=== PATIENT | female | born 1990 | race Caucasian/White ===

== ENCOUNTER 2018-10-04 09:46 | Emergency (ER) | payer OTHER ==
[~2018-10-04] VITALS: Ht 162.6 cm; Wt 59.0 kg
[~2018-10-04 09:46] MED LIST: NITR100C62 PO; ONDA4TAB10 PO
[2018-10-04 10:19] LABS: BILIRUBIN,URINE NEGATIVE (NEG); CLARITY,URINE CLEAR; COLOR,URINE YELLOW; NITRITE,URINE POSITIVE (NEG); PROTEIN,URINE NEGATIVE (NEG-TRACE); UROBILINOGEN,URINE 0.2 mg/dL (0.2 mg/dL)
--- NOTE | 2018-10-04 10:22 | PHYS DOC ---
Past Medical History Past Medical History: No Pertinent History Past Surgical History: Appendectomy, , Tubal ligation Additional Past Surgical Histo: SINUS SX Additional Information: 1/2 PACK DAY Alcohol Use: None Drug Use: Marijuana Adult General Chief Complaint Chief Complaint: ABDOMINAL PAIN HPI HPI 28 yo F with epigastric abd pain. sharp shooting nonradiating pain. no vomiting. no fevers. Hx of appendectomy and tubal ligation. ROS neg for f/c/v. All other review of systems is negative unless otherwise noted in history of present illness. ED course: 28 yo F presenting to the ED with epigastric abdominal pain. On arrival she is afebrile with normal heart rate. She is well-appearing on examination was soft and nontender abdomen. Negative McBurney's point. Negative Delaney sign. No rebound tenderness or guarding. Nondistended. She has not had any vomiting. Blood work obtained. IV fluids given along with nausea and right upper quadrant. Ultrasound of the gallbladder shows thickened appearance. Cannot exclude cholecystitis. Patient did eat prior to gallbladder ultrasound. Otherwise white blood count is within normal limits. Hemoglobin within normal limits. The patient does have a urinary tract infection. I had a long conversation with the patient about the ultrasound results and options. The patient on repeat examination has mild tenderness in the right upper quadrant. She does not have a fever and her vital signs are within normal limits. Blood pressure 120 systolic. Heart rate normal. Even the results of the ultrasound, I recommended admission for observation with possibly repeating the ultrasound at a later time or surgical consultation. The patient does not want to be admitted the hospital and would like to sign out AMA. I informed the patient of their right to a medical screening exam and any treatment and/or stabilization that may be necessary regardless of their ability to pay. The patient appears to have intact insight, judgment, and reason. In my opinion, this patient has the capacity to make decisions. The patient presented with abdominal pain and I am concerned that this could be cholelithiasis, cholecystitis. My initial plan prior to the pt expressing the desire to leave was admission for monitoring. I explained the risk of and disability to the patient in plain language which they were able to demonstrate in their own words verbal understanding. I discussed the limitations of the workup thus far included but were not limited to specialist consultation and repeat diagnostic imaging with medical monitoring. The pt has verbalized understanding of my concerns. I offered alternatives to the therapy including returning for worsening symptoms. I recommended the pt follow up with pcp tomorrow. I explained that at any time if the patient changed their mind, we are always open and would be happy to have them back. The patient refused further care and then left against medical advice. Review of Systems Review of Systems SEE ABOVE. Allergies Allergies Allergies Coded Allergies Type Severity Reaction Last Updated Verified No Known Drug Allergies 06/25/13 No Physical Exam Physical Exam SEE ABOVE Constitutional: Well developed, well nourished, no acute distress, non-toxic appearance. [] HENT: Normocephalic, atraumatic, bilateral external ears normal, oropharynx moist, no oral exudates, nose normal. [] Eyes: PERRLA, EOMI, conjunctiva normal, no discharge. [] Neck: Normal range of motion, no tenderness, supple, no stridor. [] Cardiovascular:Heart rate regular rhythm, no murmur [] Lungs & Thorax: Bilateral breath sounds clear to auscultation [] Abdomen: Bowel sounds normal, soft, no tenderness, no masses, no pulsatile masses. [] Skin: Warm, dry, no erythema, no rash. [] Back: No tenderness, no CVA tenderness. [] Extremities: No tenderness, no cyanosis, no clubbing, ROM intact, no edema. [] Neurologic: Alert and oriented X 3, normal motor function, normal sensory function, no focal deficits noted. [] Psychologic: Affect normal, judgement normal, mood normal. [] Current Patient Data Vital Signs Vital Signs Date Time Temp Pulse Resp B/P (MAP) Pulse Ox O2 Delivery O2 Flow Rate FiO2 10/04/18 10:11 98.0 91 18 124/67 (86) 100 Room Air 98.0 Lab Values Laboratory Tests Test 10/04/18 09:55 10/04/18 10:08 10/04/18 10:20 Urine Collection Type Unknown Urine Color Yellow Urine Clarity Clear Urine pH 6.0 Urine Specific [place] 1.010 Urine Protein Negative mg/dL (NEG-TRACE) Urine Glucose (UA) Negative mg/dL (NEG) Urine Ketones (Stick) Negative mg/dL (NEG) Urine Blood Small (NEG) Urine Nitrite Positive (NEG) Urine Bilirubin Negative (NEG) Urine Urobilinogen Dipstick 0.2 mg/dL (0.2 mg/dL) Urine Leukocyte Esterase Small (NEG) Urine RBC 1-2 /HPF (0-2) Urine WBC 20-40 /HPF (0-4) Urine Squamous Epithelial Cells Few /LPF Urine Bacteria Moderate /HPF (0-FEW) Urine Mucus Marked /LPF POC Urine HCG, Qualitative Hcg negative (Negative) White Blood Count 8.4 x10^3/uL (4.0-11.0) Red Blood Count 4.12 x10^6/uL (3.50-5.40) Hemoglobin 12.3 g/dL (12.0-15.5) Hematocrit 36.2 % (36.0-47.0) Mean Corpuscular Volume 88 fL (79-100) Mean Corpuscular Hemoglobin 30 pg (25-35) Mean Corpuscular Hemoglobin Concent 34 g/dL (31-37) Red Cell Distribution Width 13.3 % (11.5-14.5) Platelet Count 284 x10^3/uL (140-400) Neutrophils (%) (Auto) 60 % (31-73) Lymphocytes (%) (Auto) 28 % (24-48) Monocytes (%) (Auto) 7 % (0-9) Eosinophils (%) (Auto) 5 % (0-3) H Basophils (%) (Auto) 1 % (0-3) Neutrophils # (Auto) 5.1 x10^3uL (1.8-7.7) Lymphocytes # (Auto) 2.3 x10^3/uL (1.0-4.8) Monocytes # (Auto) 0.5 x10^3/uL (0.0-1.1) Eosinophils # (Auto) 0.4 x10^3/uL (0.0-0.7) Basophils # (Auto) 0.1 x10^3/uL (0.0-0.2) Sodium Level 142 mmol/L (136-145) Potassium Level 3.7 mmol/L (3.5-5.1) Chloride Level 105 mmol/L (98-107) Carbon Dioxide Level 24 mmol/L (21-32) Anion Gap 13 (6-14) Blood Urea Nitrogen 8 mg/dL (7-20) Creatinine 0.8 mg/dL (0.6-1.0) Estimated GFR (Cockcroft-Gault) 84.8 BUN/Creatinine Ratio 10 (6-20) Glucose Level 121 mg/dL (70-99) H Calcium Level 8.8 mg/dL (8.5-10.1) Total Bilirubin 0.6 mg/dL (0.2-1.0) Aspartate Amino Transferase (AST) 13 U/L (15-37) L Alanine Aminotransferase (ALT) 14 U/L (14-59) Alkaline Phosphatase 59 U/L (46-116) Total Protein 6.8 g/dL (6.4-8.2) Albumin 3.5 g/dL (3.4-5.0) Albumin/Globulin Ratio 1.1 (1.0-1.7) Lipase 92 U/L (73-393) Laboratory Tests 10/04/18 10:20 Laboratory Tests 10/04/18 10:20 EKG EKG [] Radiology/Procedures Radiology/Procedures [] Course & Med Decision Making Course & Med Decision Making Pertinent Labs and Imaging studies reviewed. (See chart for details) [] Dragon Disclaimer Dragon Disclaimer This electronic medical record was generated, in whole or in part, using a voice recognition dictation system. Departure Departure Impression: Primary Impression: Epigastric abdominal pain Disposition: AGAINST MEDICAL ADVICE Condition: GUARDED Referrals: KIESHA DE LEON MD (PCP) TERRA ALBARADO MD Oct 04, 2018 10:22
[2018-10-04 10:30] LABS: BASO # 0.1 x10^3/uL (0.0-0.2); BASO % 1 % (0-3); EOS # 0.4 x10^3/uL (0.0-0.7); EOS % 5 % (0-3); HEMATOCRIT 36.2 % (36.0-47.0); HEMOGLOBIN 12.3 g/dL (12.0-15.5); LYMPH # 2.3 x10^3/uL (1.0-4.8); LYMPH % 28 % (24-48); MEAN CORPUSCULAR HEMOGLOBIN 30 pg (25-35); MEAN CORPUSCULAR HGB CONC 34 g/dL (31-37); MEAN CORPUSCULAR VOLUME 88 fL (79-100); MONO # 0.5 x10^3/uL (0.0-1.1); MONO % 7 % (0-9); NEUT # 5.1 x10^3uL (1.8-7.7); NEUT % 60 % (31-73); PLATELET COUNT 284 x10^3/uL (140-400); RED BLOOD COUNT 4.12 x10^6/uL (3.50-5.40); RED CELL DISTRIBUTION WIDTH 13.3 % (11.5-14.5); WHITE BLOOD COUNT 8.4 x10^3/uL (4.0-11.0)
[2018-10-04 10:48] LABS: BACTERIA,URINE MODERATE /HPF (0-FEW); SQUAMOUS EPITHELIAL CELL,UR FEW /LPF; WBC,URINE 20-40 /HPF (0-4)
[2018-10-04 10:51] LABS: CALCIUM 8.8 mg/dL (8.5-10.1); CREATININE 0.8 mg/dL (0.6-1.0); GFR 84.8; POTASSIUM 3.7 mmol/L (3.5-5.1)
[2018-10-04 10:55] LABS: ALBUMIN 3.5 g/dL (3.4-5.0); ALBUMIN/GLOBULIN RATIO 1.1 (1.0-1.7); TOTAL BILIRUBIN 0.6 mg/dL (0.2-1.0); TOTAL PROTEIN 6.8 g/dL (6.4-8.2)
--- NOTE | 2018-10-04 11:04 | RAD ---
Examination: Ultrasound abdomen limited History: History of epigastric abdominal pain COMPARISON: None available. FINDINGS: The pancreas is not well-visualized due to bowel gas. The gallbladder wall thickness measures 3.5 mm. No ultrasonographic evidence of Delaney's sign. No evidence of gallstones. The right with the liver measures 15.5 cm. The right kidney measures 10.6 cm in length Visualized IVC, aorta is within normal limits of dimension IMPRESSION: 1. Thickened appearance of the gallbladder wall. Please note that the patient ate one and half hour back so thickness of the gallbladder could be due to contracted status of the gallbladder. However other possibility like cholecystitis is not completely excluded but no evidence of pericholecystic fluid or ultrasonographic evidence of Delaney's sign is identified. Correlate clinically. Electronically signed by: Sebastien Vivas MD (10/04/2018 11:01 AM) [id number]
[2018-10-04 11:48] VITALS: BP 127/69
== END 2018-10-04 11:50 | disposition left against medical advice (07) ==
LOC: ER 09:46
DX: R10.13 Epigastric pain (principal); R10.11 Right upper quadrant pain; F17.200 Nicotine dependence, unspecified, uncomplicated; Z90.89 Acquired absence of other organs; Z98.51 Tubal ligation status
CPT/HCPCS: 36415; 76705; 80053; 81001; 81025; 83690; 85025; 87086; 87186; 99284-25

== ENCOUNTER 2018-10-04 14:43 | Inpatient (IN) | payer OTHER ==
[~2018-10-04] VITALS: Ht 162.6 cm; Wt 62.9 kg
[2018-10-04] MEDS ORDERED: cefTRIAXone IV Push 1 GM VIAL. IVP ONE (16:00)
--- NOTE | 2018-10-04 16:31 | PDOC1 ---
History and Physical Date of Admission Date of Admission DATE: 10/04/18 TIME: 16:29 Identification/Chief Complaint Chief Complaint SEEN IN ER presented today to the ED to be admitted for possible cholecystitis and UTI, she was seen earlier today was supposed to be admitted so she signed out AMA because she had to take care of her children. Patient states she's had epigastric abdominal pain rated at 8 out of 10 described as sharp and constant since this morning. Also complaining of nausea. Denies pain radiating to her back. UTI SUSPECTED IN ER Past Medical History Past Medical History Past Medical History Past Medical History: No Pertinent History Past Surgical History: Appendectomy, , Tubal ligation Additional Past Surgical Histo: SINUS SX Alcohol Use: None Drug Use: Marijuana FAMILY HX HTN Cardiovascular: No pertinent hx Pulmonary: No pertinent hx Psych: No pertinent hx ENT: No pertinent hx Renal/: No pertinent hx Family History Family History: Hypertension Social History Smoke: <1 pack per day ALCOHOL: occassional Drugs: Marijuana Current Medications Current Medications Current Medications Ceftriaxone Sodium (Rocephin) 1 gm 1X ONCE IVP Last administered on 10/04/18at 16:18; Start 10/04/18 at 16:00; Stop 10/04/18 at 16:01; Status DC Active Scripts Active Zofran Odt (Ondansetron) 4 Mg Tab.rapdis 4 Mg PO Q8HRS PRN Macrobid 100 Mg Capsule (Nitrofurantoin Monohyd/M-Cryst) 100 Mg Capsule 100 Mg PO Q12HR Allergies Allergies: Coded Allergies: No Known Drug Allergies (Unverified , 06/25/13) ROS Review of System Review of Systems Review of Systems Constitutional: Denies fever or chills [] Eyes: Denies change in visual acuity, redness, or eye pain [] HENT: Denies nasal congestion or sore throat [] Respiratory: Denies cough or shortness of breath [] Cardiovascular: No additional information not addressed in HPI [] GI: Reports epigastric RUQ abdominal pain with nausea, denies vomiting, bloody stools or diarrhea [] : Denies dysuria or hematuria [] Musculoskeletal: SOME back pain or joint pain [] Integument: Denies rash or skin lesions [] Neurologic: Denies headache, focal weakness or sensory changes [] 14 PT systems were reviewed and found to be within normal limits, except as documented General: YES: Fatigue PSYCHOLOGICAL ROS: No: Anxiety, Behavioral Disorder, Concentration difficultie , Decreased libido, Depression, Disorientation, Hallucinations, Hostility, Irritablity, Memory difficulties, Mood Swings, Obsessive thoughts, Physical abuse, Sexual abuse, Sleep disturbances, Suicidal ideation, Other Eyes: No Blurry vision, No Decreased vision, No Double vision, No Dry eyes, No Excessive tearing, No Eye Pain, No Itchy Eyes, No Loss of vision, No Photophobia , No Scotomata, No Uses contacts, No Uses glasses, No Other Gastrointestinal: Yes Nausea, Yes Abdominal Pain Musculoskeletal: No Gait Disturbance, No Joint Pain, No Joint Stiffness, No Joint Swelling, No Muscle Pain, No Muscular Weakness, No Pain In:, No Swelling In:, No Other Skin: No Dry Skin, No Eczema, No Hair Changes, No Lumps, No Mole Changes, No Mottling, No Nail Changes, No Pruritus, No Rash, No Skin Lesion Changes, No Other, No Acne Physical Exam Physical Exam Physical Exam Physical Exam Constitutional: Well developed, well nourished, MOD acute distress, non-toxic appearance. [] HENT: Normocephalic, atraumatic, bilateral external ears normal, oropharynx moist, no oral exudates, nose normal. [] Eyes: PERRLA, EOMI, conjunctiva normal, no discharge. [] Neck: Normal range of motion, no tenderness, supple, no stridor. [] Cardiovascular:Heart rate regular rhythm, no murmur [] Lungs & Thorax: Bilateral breath sounds clear to auscultation [] Abdomen: Bowel sounds normal, soft, mild tenderness on palpation of the right upper quadrant, no right lower quadrant tenderness, negative Delaney sign, negative psoas sign, negative obturator sign, no masses, no pulsatile masses. [ ] Skin: Warm, dry, no erythema, no rash. [] Back: No tenderness, no CVA tenderness. [] Extremities: No tenderness, no cyanosis, no clubbing, ROM intact, no edema. [] Neurologic: Alert and oriented X 3, normal motor function, normal sensory function, no focal deficits noted. [] Psychologic: Affect normal, judgement normal, mood normal. [] General: Alert, Oriented X3, Cooperative, moderate distress HEENT: EOMI, Mucous membr. moist/pink Lungs: Clear to auscultation, Normal air movement Heart: S1S2, RRR Breasts: Not examined Abdomen: Soft PELVIC: Examination not indicated Extremities: No edema Neuro: Normal speech, Cranial nerves 3-12 NL Psych/Mental Status: Mental status NL, Mood NL Vitals Vitals Vital Signs Date Time Temp Pulse Resp B/P (MAP) Pulse Ox O2 Delivery O2 Flow Rate FiO2 10/04/18 15:23 97.6 80 18 112/55 (74) 100 Room Air 97.6 Images Images Examination: Ultrasound abdomen limited History: History of epigastric abdominal pain COMPARISON: None available. FINDINGS: The pancreas is not well-visualized due to bowel gas. The gallbladder wall thickness measures 3.5 mm. No ultrasonographic evidence of Delaney's sign. No evidence of gallstones. The right with the liver measures 15.5 cm. The right kidney measures 10.6 cm in length Visualized IVC, aorta is within normal limits of dimension IMPRESSION: 1. Thickened appearance of the gallbladder wall. Please note that the patient ate one and half hour back so thickness of the gallbladder could be due to contracted status of the gallbladder. However other possibility like cholecystitis is not completely excluded but no evidence of pericholecystic fluid or ultrasonographic evidence of Delaney's sign is identified. Correlate clinically. Electronically signed by: Sebastien Vivas MD (10/04/2018 11:01 AM) CRM VTE Prophylaxis Ordered VTE Prophylaxis Devices: Yes VTE Pharmacological Prophylaxi: Yes Assessment/Plan Assessment/Plan IMPRESSION 1. cholecystitis is not completely excluded no evidence of pericholecystic fluid or ultrasonographic evidence of Delaney's sign is identified. Correlate clinically. 2. UTI PLAN ADMIT IV ROCEPHIN GI CONSULT IV PROTONIX IV FLUID SUPPORT DVT PROPHYLAXIS AM CBC, COMP ALENA GARSIA MD Oct 04, 2018 16:31
--- NOTE | 2018-10-04 16:36 | PHYS DOC ---
Past Medical History Past Medical History: No Pertinent History Past Surgical History: Appendectomy, , Tubal ligation Additional Past Surgical Histo: SINUS SX Alcohol Use: None Drug Use: Marijuana Adult General Chief Complaint Chief Complaint: ABDOMINAL PAIN HPI HPI Patient is a 28 year old female with no significant medical history who presents today to the ED to be admitted for possible cholecystitis and UTI, she was seen earlier today was supposed to be admitted so she signed out AMA because she had to take care of her children. Patient states she's had epigastric abdominal pain rated at 8 out of 10 described as sharp and constant since this morning. Also complaining of nausea. Denies pain radiating to her back. Denies anything specifically relieving or exacerbating the pain. Review of Systems Review of Systems Constitutional: Denies fever or chills [] Eyes: Denies change in visual acuity, redness, or eye pain [] HENT: Denies nasal congestion or sore throat [] Respiratory: Denies cough or shortness of breath [] Cardiovascular: No additional information not addressed in HPI [] GI: Reports epigastric abdominal pain with nausea, denies vomiting, bloody stools or diarrhea [] : Denies dysuria or hematuria [] Musculoskeletal: Denies back pain or joint pain [] Integument: Denies rash or skin lesions [] Neurologic: Denies headache, focal weakness or sensory changes [] All other systems were reviewed and found to be within normal limits, except as documented in this note. Current Medications Current Medications Current Medications Medications (Trade) Dose Ordered Sig/[facility] Start Time Stop Time Status Last Admin Dose Admin Ceftriaxone Sodium (Rocephin) 1 gm 1X ONCE 10/04/18 16:00 10/04/18 16:01 DC 10/04/18 16:18 1 GM Allergies Allergies Allergies Coded Allergies Type Severity Reaction Last Updated Verified No Known Drug Allergies 06/25/13 No Physical Exam Physical Exam Constitutional: Well developed, well nourished, no acute distress, non-toxic appearance. [] HENT: Normocephalic, atraumatic, bilateral external ears normal, oropharynx moist, no oral exudates, nose normal. [] Eyes: PERRLA, EOMI, conjunctiva normal, no discharge. [] Neck: Normal range of motion, no tenderness, supple, no stridor. [] Cardiovascular:Heart rate regular rhythm, no murmur [] Lungs & Thorax: Bilateral breath sounds clear to auscultation [] Abdomen: Bowel sounds normal, soft, mild tenderness on palpation of the right upper quadrant, no right lower quadrant tenderness, negative Delaney sign, negative psoas sign, negative obturator sign, no masses, no pulsatile masses. [ ] Skin: Warm, dry, no erythema, no rash. [] Back: No tenderness, no CVA tenderness. [] Extremities: No tenderness, no cyanosis, no clubbing, ROM intact, no edema. [] Neurologic: Alert and oriented X 3, normal motor function, normal sensory function, no focal deficits noted. [] Psychologic: Affect normal, judgement normal, mood normal. [] Current Patient Data Vital Signs Vital Signs Date Time Temp Pulse Resp B/P (MAP) Pulse Ox O2 Delivery O2 Flow Rate FiO2 10/04/18 15:23 97.6 80 18 112/55 (74) 100 Room Air 97.6 EKG EKG [] Radiology/Procedures Radiology/Procedures [] Course & Med Decision Making Course & Med Decision Making Pertinent Labs and Imaging studies reviewed. (See chart for details) This is a 28-year-old female patient presented to the ED today to be admitted for cholecystitis and UTI. She was seen earlier and left AMA. Spoke with Dr. Del Angel who accepted patient for admission. From labs done this morning patient's white count was normal, AST is 13, ALT 14, ALK 59. Patient is afebrile. Spoke with Dr. Mata regarding the ultrasound results and labs, he requested we discharge patient to home and she can follow-up with his clinic. Dr. Del Angel came and saw patient and stated he will still admit patient and consult GI. Giuliano Disclaimer Dragon Disclaimer This electronic medical record was generated, in whole or in part, using a voice recognition dictation system. Departure Departure Impression: Primary Impression: Urinary tract infection Additional Impression: Abdominal pain Disposition: ADMITTED INPATIENT Condition: STABLE Referrals: KIESHA DE LEON MD (PCP) Problem Qualifiers Primary Impression: Urinary tract infection Urinary tract infection type: site unspecified Hematuria presence: without hematuria Qualified Codes: N39.0 - Urinary tract infection, site not specified Additional Impression: Abdominal pain Abdominal location: epigastric Qualified Codes: R10.13 - Epigastric pain OLLIE MARIE DISTRIBUTION COORDINATOR Oct 04, 2018 16:36
[2018-10-04] MEDS ORDERED: ONDANSETRON PF 4 MG/2 ML VIAL. IV PRN (16:45)
[2018-10-04] MEDS ORDERED: IV NORMAL SALINE 1000ML BAG 1,000 ML IV ONE (16:45)
[2018-10-04 18:15] VITALS: BP 106/70
--- NOTE | 2018-10-04 18:30 | NUR ---
Pt admitted from ED. A&o X4, VSS, c/o pain 01/23. Completed admission assessment. Oriented to room and unit. Consults were called. Call light within reach. Will continue to monitor.
[2018-10-04] MEDS: fentaNYL PF VIAL 100 MCG/2 ML VIAL IV PRN ×3 (18:41→23:13)
[2018-10-04] MEDS ORDERED: ONDANSETRON ODT 4 MG TAB.RAPDIS. PO PRN (19:00)
[2018-10-04] MEDS ORDERED: ENOXAPARIN 40 MG/0.4 ML SYRINGE. SQ SCH (19:00)
--- NOTE | 2018-10-04 19:31 | NUR ---
Lovenox held for possible procedure.
[2018-10-04 23:23] VITALS: BP 100/44
[2018-10-05 03:38] VITALS: BP 95/48
[2018-10-05] MEDS: fentaNYL PF VIAL 100 MCG/2 ML VIAL IV PRN ×2 (04:23→08:04)
[2018-10-05 06:54] LABS: BASO # 0.1 x10^3/uL (0.0-0.2); BASO % 1 % (0-3); EOS # 0.4 x10^3/uL (0.0-0.7); EOS % 7 % (0-3); HEMATOCRIT 34.5 % (36.0-47.0); HEMOGLOBIN 11.7 g/dL (12.0-15.5); LYMPH # 2.5 x10^3/uL (1.0-4.8); LYMPH % 43 % (24-48); MEAN CORPUSCULAR HEMOGLOBIN 30 pg (25-35); MEAN CORPUSCULAR HGB CONC 34 g/dL (31-37); MEAN CORPUSCULAR VOLUME 88 fL (79-100); MONO # 0.5 x10^3/uL (0.0-1.1); MONO % 8 % (0-9); NEUT # 2.4 x10^3uL (1.8-7.7); NEUT % 41 % (31-73); PLATELET COUNT 258 x10^3/uL (140-400); RED BLOOD COUNT 3.91 x10^6/uL (3.50-5.40); RED CELL DISTRIBUTION WIDTH 13.6 % (11.5-14.5); WHITE BLOOD COUNT 5.8 x10^3/uL (4.0-11.0)
[2018-10-05 07:00] VITALS: BP 92/49
[2018-10-05 07:43] LABS: ALBUMIN/GLOBULIN RATIO 0.9 (1.0-1.7); CALCIUM 8.2 mg/dL (8.5-10.1); CREATININE 0.7 mg/dL (0.6-1.0); GFR 98.9; POTASSIUM 3.6 mmol/L (3.5-5.1); TOTAL BILIRUBIN 0.7 mg/dL (0.2-1.0); TOTAL PROTEIN 6.2 g/dL (6.4-8.2)
--- NOTE | 2018-10-05 08:43 | RAD ---
PQRS Compliance statement: One or more of the following individualized dose reduction techniques were utilized for this examination: 1. Automated exposure control. 2. Adjustment of the mA and/or kV according to patient size. 3. Use of iterative reconstruction technique. Indication:SEVERE ABD PAIN;HX POSSIBLE CHOLECYSTITIS TECHNIQUE: CT abdomen and pelvis without IV contrast with multiplanar reformats. COMPARISON: None FINDINGS: Limited evaluation of solid abdominal and pelvic organs due to lack of IV contrast. Heart is normal in size. No pericardial or pleural effusion. Clear lung bases. Noncontrast appearance of the liver, spleen, gallbladder, pancreas, adrenals and kidneys within normal limits. No nephrolithiasis. No free pelvic fluid or ascites. No bowel obstruction. Uterus is present. Urinary bladder is within normal limits. No pneumoperitoneum. Bilateral L5 pars defect. No suspicious bony lesion. IMPRESSION: Limited evaluation of solid abdominal and pelvic organs due to lack of IV contrast. 1. No radiopaque gallstones or imaging evidence of acute cholecystitis. 2. No nephrolithiasis or hydronephrosis. Electronically signed by: Sharad Tolentino DO (10/05/2018 8:41 AM) [facility]
--- NOTE | 2018-10-05 09:07 | PDOC2 ---
CONSULT Date of Consult Date of Consult DATE: 10/05/18 TIME: 09:04 Reason for Consult Reason for Consult: Abdominal pain Referring Physician Referring Physician: Fullbright Identification/Chief Complaint Chief Complaint Abdominal pain no appetite Source Source: Patient History of Present Illness Reason for Visit: 28-year-old female with three-day history of right sided epigastric abdominal pain with some nausea no vomiting she states she has no appetite and has not eaten much in the last 3 days. She denies fevers chills. States the pain is fairly constant burning type pain in the upper abdomen Past Medical History Cardiovascular: No pertinent hx Pulmonary: No pertinent hx Psych: No pertinent hx ENT: No pertinent hx Renal/: No pertinent hx Past Surgical History Past Surgical History: No pertinent history Family History Family History: Hypertension Social History <1 pack per day ALCOHOL: occassional Drugs: Marijuana Current Problem List Problem List Problems Medical Problems: (1) Abdominal pain Status: Acute (2) Urinary tract infection Status: Acute Current Medications Current Medications Current Medications Ceftriaxone Sodium (Rocephin) 1 gm 1X ONCE IVP Last administered on 10/04/18at 16:18; Start 10/04/18 at 16:00; Stop 10/04/18 at 16:01; Status DC Ondansetron HCl (Zofran) 4 mg PRN Q8HRS PRN IV NAUSEA/VOMITING; Start 10/04/18 at 16:45; Stop 10/05/18 at 16:44 Fentanyl Citrate (Fentanyl 2ml Vial) 50 mcg PRN Q1HR PRN IV PAIN Last administered on 10/05/18at 08:04; Start 10/04/18 at 16:45; Stop 10/05/18 at 16:44 Sodium Chloride 1,000 ml @ 100 mls/hr 1X ONCE IV Last administered on at 18:43; Start 10/04/18 at 16:45; Stop 10/05/18 at 02:44; Status DC Ceftriaxone Sodium (Rocephin) 1 gm Q24H IVP ; Start 10/05/18 at 18:45 Ondansetron HCl (Zofran Odt) 4 mg PRN Q8HRS PRN PO NAUSEA/VOMITING; Start 10/04 at 19:00 Enoxaparin Sodium (Lovenox 40mg Syringe) 40 mg Q24H SQ ; Start 10/04/18 at 19:00 Active Scripts Active Zofran Odt (Ondansetron) 4 Mg Tab.rapdis 4 Mg PO Q8HRS PRN Macrobid 100 Mg Capsule (Nitrofurantoin Monohyd/M-Cryst) 100 Mg Capsule 100 Mg PO Q12HR Allergies Allergies: Uncoded Allergies: contrast (Adverse Reaction, Mild, Hives, 10/04/18) ROS Gastrointestinal: Yes Nausea, Yes Abdominal Pain Physical Exam General: Alert, Oriented X3, Cooperative, mild distress HEENT: Atraumatic, PERRLA, EOMI Lungs: Clear to auscultation, Normal air movement Heart: Regular rate, No murmurs Abdomen: Normal bowel sounds, Soft, Other (tender to palpation in epigastrium to right upper quadrant) Extremities: No edema Skin: No significant lesion Neuro: Normal speech Psych/Mental Status: Mental status NL Vitals VITALS Vital Signs Date Time Temp Pulse Resp B/P (MAP) Pulse Ox O2 Delivery O2 Flow Rate FiO2 10/05/18 08:04 Room Air 10/05/18 07:00 98.1 59 17 92/49 (63) 96 98.1 Labs Labs Laboratory Tests Test 10/05/18 06:09 White Blood Count 5.8 x10^3/uL (4.0-11.0) Red Blood Count 3.91 x10^6/uL (3.50-5.40) Hemoglobin 11.7 g/dL (12.0-15.5) Hematocrit 34.5 % (36.0-47.0) Mean Corpuscular Volume 88 fL (79-100) Mean Corpuscular Hemoglobin 30 pg (25-35) Mean Corpuscular Hemoglobin Concent 34 g/dL (31-37) Red Cell Distribution Width 13.6 % (11.5-14.5) Platelet Count 258 x10^3/uL (140-400) Neutrophils (%) (Auto) 41 % (31-73) Lymphocytes (%) (Auto) 43 % (24-48) Monocytes (%) (Auto) 8 % (0-9) Eosinophils (%) (Auto) 7 % (0-3) Basophils (%) (Auto) 1 % (0-3) Neutrophils # (Auto) 2.4 x10^3uL (1.8-7.7) Lymphocytes # (Auto) 2.5 x10^3/uL (1.0-4.8) Monocytes # (Auto) 0.5 x10^3/uL (0.0-1.1) Eosinophils # (Auto) 0.4 x10^3/uL (0.0-0.7) Basophils # (Auto) 0.1 x10^3/uL (0.0-0.2) Sodium Level 142 mmol/L (136-145) Potassium Level 3.6 mmol/L (3.5-5.1) Chloride Level 107 mmol/L (98-107) Carbon Dioxide Level 25 mmol/L (21-32) Anion Gap 10 (6-14) Blood Urea Nitrogen 3 mg/dL (7-20) Creatinine 0.7 mg/dL (0.6-1.0) Estimated GFR (Cockcroft-Gault) 98.9 BUN/Creatinine Ratio 4 (6-20) Glucose Level 82 mg/dL (70-99) Calcium Level 8.2 mg/dL (8.5-10.1) Total Bilirubin 0.7 mg/dL (0.2-1.0) Aspartate Amino Transf (AST/SGOT) 15 U/L (15-37) Alanine Aminotransferase (ALT/SGPT) 10 U/L (14-59) Alkaline Phosphatase 54 U/L (46-116) Total Protein 6.2 g/dL (6.4-8.2) Albumin 3.0 g/dL (3.4-5.0) Albumin/Globulin Ratio 0.9 (1.0-1.7) Laboratory Tests Test 10/05/18 06:09 White Blood Count 5.8 x10^3/uL (4.0-11.0) Red Blood Count 3.91 x10^6/uL (3.50-5.40) Hemoglobin 11.7 g/dL (12.0-15.5) Hematocrit 34.5 % (36.0-47.0) Mean Corpuscular Volume 88 fL (79-100) Mean Corpuscular Hemoglobin 30 pg (25-35) Mean Corpuscular Hemoglobin Concent 34 g/dL (31-37) Red Cell Distribution Width 13.6 % (11.5-14.5) Platelet Count 258 x10^3/uL (140-400) Neutrophils (%) (Auto) 41 % (31-73) Lymphocytes (%) (Auto) 43 % (24-48) Monocytes (%) (Auto) 8 % (0-9) Eosinophils (%) (Auto) 7 % (0-3) Basophils (%) (Auto) 1 % (0-3) Neutrophils # (Auto) 2.4 x10^3uL (1.8-7.7) Lymphocytes # (Auto) 2.5 x10^3/uL (1.0-4.8) Monocytes # (Auto) 0.5 x10^3/uL (0.0-1.1) Eosinophils # (Auto) 0.4 x10^3/uL (0.0-0.7) Basophils # (Auto) 0.1 x10^3/uL (0.0-0.2) Sodium Level 142 mmol/L (136-145) Potassium Level 3.6 mmol/L (3.5-5.1) Chloride Level 107 mmol/L (98-107) Carbon Dioxide Level 25 mmol/L (21-32) Anion Gap 10 (6-14) Blood Urea Nitrogen 3 mg/dL (7-20) Creatinine 0.7 mg/dL (0.6-1.0) Estimated GFR (Cockcroft-Gault) 98.9 BUN/Creatinine Ratio 4 (6-20) Glucose Level 82 mg/dL (70-99) Calcium Level 8.2 mg/dL (8.5-10.1) Total Bilirubin 0.7 mg/dL (0.2-1.0) Aspartate Amino Transf (AST/SGOT) 15 U/L (15-37) Alanine Aminotransferase (ALT/SGPT) 10 U/L (14-59) Alkaline Phosphatase 54 U/L (46-116) Total Protein 6.2 g/dL (6.4-8.2) Albumin 3.0 g/dL (3.4-5.0) Albumin/Globulin Ratio 0.9 (1.0-1.7) Images Images Ultrasound shows contracted gallbladder no stones no evidence of pericholecystic fluid or inflammation CT scan of the abdomen shows no gallstones no thickened gallbladder wall no pericholecystic fluid no monie cholecystic inflammation Assessment/Plan Assessment/Plan Epigastric to right upper quadrant abdominal pain with loss of appetite possibly gastric ulcer disease recommend EGD ALENA BRADSHAW MD Oct 05, 2018 09:07
--- NOTE | 2018-10-05 09:45 | PDOC2 ---
GI CONSULT Reason For Consult: Abd pain HPI: HPI: 28 y/o female who was evaluated twice int he ER yesterday - first time left AMA to care for her children. She says she awoke yesterday morning feeling like she "ran a mile" with "stabbing" right-sided pain and some shortness of breath. Has had similar symptoms before but only after running. Associated w/ nausea but no vomiting. Does report some decreased appetite recently. Also, she started a new job and doesn't have a lunch break so she has been skipping lunch. She estimates a 15 pound weight loss in 3 weeks. No hematemesis, hematochezia, melena, diarrhea, or constipation. No heartburn/reflux or dysphagia. No previous EGD or colonoscopy. No GB, liver, or pancreas history. No regular NSAID use. She is tearful when I walked in and requests to try eating and go home to her 2 and 4 year old children. Currently, pain has resolved w/ pain medications. Thickened GB wall on US, CT unrevealing. UTI suspected per labs completed the first time she was in the ER. PMH: PMH: appendectomy, , tubal ligation FH: Family History: Cancer (grandfather - colon), Other (grandmother - Crohn's, mother - colitis) Social History: Smoke: <1 pack per day ALCOHOL: none Drugs: Marijuana ROS: GEN: Denies fevers, chills, sweats HEENT: Denies blurred vision, sore throat CV: Denies chest pain RESP: +SOA GI: Per HPI : Denies hematuria, dysuria ENDO: +weight loss NEURO: Denies confusion, dizziness MSK: Denies weakness, joint pain/swelling SKIN: Denies jaundice, pruritus Vitals: Vitals: Vital Signs Date Time Temp Pulse Resp B/P (MAP) Pulse Ox O2 Delivery O2 Flow Rate FiO2 10/05/18 08:34 Room Air 10/05/18 07:00 98.1 59 17 92/49 (63) 96 98.1 Labs: Labs: Laboratory Tests Test 10/05/18 06:09 White Blood Count 5.8 x10^3/uL (4.0-11.0) Red Blood Count 3.91 x10^6/uL (3.50-5.40) Hemoglobin 11.7 g/dL (12.0-15.5) Hematocrit 34.5 % (36.0-47.0) Mean Corpuscular Volume 88 fL (79-100) Mean Corpuscular Hemoglobin 30 pg (25-35) Mean Corpuscular Hemoglobin Concent 34 g/dL (31-37) Red Cell Distribution Width 13.6 % (11.5-14.5) Platelet Count 258 x10^3/uL (140-400) Neutrophils (%) (Auto) 41 % (31-73) Lymphocytes (%) (Auto) 43 % (24-48) Monocytes (%) (Auto) 8 % (0-9) Eosinophils (%) (Auto) 7 % (0-3) Basophils (%) (Auto) 1 % (0-3) Neutrophils # (Auto) 2.4 x10^3uL (1.8-7.7) Lymphocytes # (Auto) 2.5 x10^3/uL (1.0-4.8) Monocytes # (Auto) 0.5 x10^3/uL (0.0-1.1) Eosinophils # (Auto) 0.4 x10^3/uL (0.0-0.7) Basophils # (Auto) 0.1 x10^3/uL (0.0-0.2) Sodium Level 142 mmol/L (136-145) Potassium Level 3.6 mmol/L (3.5-5.1) Chloride Level 107 mmol/L (98-107) Carbon Dioxide Level 25 mmol/L (21-32) Anion Gap 10 (6-14) Blood Urea Nitrogen 3 mg/dL (7-20) Creatinine 0.7 mg/dL (0.6-1.0) Estimated GFR (Cockcroft-Gault) 98.9 BUN/Creatinine Ratio 4 (6-20) Glucose Level 82 mg/dL (70-99) Calcium Level 8.2 mg/dL (8.5-10.1) Total Bilirubin 0.7 mg/dL (0.2-1.0) Aspartate Amino Transf (AST/SGOT) 15 U/L (15-37) Alanine Aminotransferase (ALT/SGPT) 10 U/L (14-59) Alkaline Phosphatase 54 U/L (46-116) Total Protein 6.2 g/dL (6.4-8.2) Albumin 3.0 g/dL (3.4-5.0) Albumin/Globulin Ratio 0.9 (1.0-1.7) Allergies: Uncoded Allergies: contrast (Adverse Reaction, Mild, Hives, 10/04/18) Medications: Current Medications Medications (Trade) Dose Ordered Sig/Robbin Route PRN Reason Start Time Stop Time Status Last Admin Dose Admin Ceftriaxone Sodium (Rocephin) 1 gm 1X ONCE IVP 10/04/18 16:00 10/04/18 16:01 DC 10/04/18 16:18 Fentanyl Citrate (Fentanyl 2ml Vial) 50 mcg PRN Q1HR PRN IV PAIN 10/04/18 16:45 10/05/18 16:44 10/05/18 08:04 Sodium Chloride 1,000 ml @ 100 mls/hr 1X ONCE IV 10/04/18 16:45 10/05/18 02:44 DC 10/04/18 18:43 Imaging: Imaging: CT A/P 10/05/18 IMPRESSION: Limited evaluation of solid abdominal and pelvic organs due to lack of IV contrast. 1. No radiopaque gallstones or imaging evidence of acute cholecystitis. 2. No nephrolithiasis or hydronephrosis. 10/04/18 IMPRESSION: 1. Thickened appearance of the gallbladder wall. Please note that the patient ate one and half hour back so thickness of the gallbladder could be due to contracted status of the gallbladder. However other possibility like cholecystitis is not completely excluded but no evidence of pericholecystic fluid or ultrasonographic evidence of Delaney's sign is identified. Correlate clinically. PE: GEN: NAD HEENT: Atraumatic, PERRL LUNGS: CTAB HEART: RRR ABD: NABS, S/ND, mild epigastric and RUQ discomfort EXTREMITY: No edema SKIN: No rashes, no jaundice NEURO/PSYCH: A & O 3 A/P: A/P: Upper abd discomfort, nausea, decreased appetite, weight loss ?abnormal GB imaging FH CRC and IBD ?UTI Marijuana use -- Plans noted for EGD w/ Dr. Mata. Consider PPI. AMARJIT BRAUN Oct 05, 2018 09:45
[2018-10-05 11:00] VITALS: BP 107/60
--- NOTE | 2018-10-05 11:51 | NUR ---
SW following. Discussed with RN, RN advised no SW needs at this time. Possible procedure today. Pt could also possibly discharge home today with self care. SW will continue to follow.
--- NOTE | 2018-10-05 11:57 | PDOC ---
PROGRESS NOTES Chief Complaint Chief Complaint Abdominal Pain UTI ?Cholecystitis ?PUD Mild Anemia H/o appendectomy, tubal ligation FHx of HTN History of Present Illness History of Present Illness Ms Rice is a 28yo F who presents with abdominal pain, found to have a UTI and possible cholecystitis vs ulcer She was seen and examined this morning was at bedside She reports improving abdominal pain, described it as cramping and in epigastric and RUQ regions Denies further complaints Discussed with RN Vitals Vitals Vital Signs Date Time Temp Pulse Resp B/P (MAP) Pulse Ox O2 Delivery O2 Flow Rate FiO2 10/05/18 11:00 98.1 71 16 107/60 (76) 98 Room Air 98.1 Physical Exam General: Alert, Oriented X3, Cooperative, mild distress Heart: Regular rate, No murmurs Lungs: Clear Abdomen: Normal bowel sounds, Soft, Other (tender to palpation in epigastrium to right upper quadrant) Extremities: No edema Skin: No rashes, No significant lesion Labs LABS Laboratory Tests Test 10/05/18 06:09 White Blood Count 5.8 x10^3/uL (4.0-11.0) Red Blood Count 3.91 x10^6/uL (3.50-5.40) Hemoglobin 11.7 g/dL (12.0-15.5) Hematocrit 34.5 % (36.0-47.0) Mean Corpuscular Volume 88 fL (79-100) Mean Corpuscular Hemoglobin 30 pg (25-35) Mean Corpuscular Hemoglobin Concent 34 g/dL (31-37) Red Cell Distribution Width 13.6 % (11.5-14.5) Platelet Count 258 x10^3/uL (140-400) Neutrophils (%) (Auto) 41 % (31-73) Lymphocytes (%) (Auto) 43 % (24-48) Monocytes (%) (Auto) 8 % (0-9) Eosinophils (%) (Auto) 7 % (0-3) Basophils (%) (Auto) 1 % (0-3) Neutrophils # (Auto) 2.4 x10^3uL (1.8-7.7) Lymphocytes # (Auto) 2.5 x10^3/uL (1.0-4.8) Monocytes # (Auto) 0.5 x10^3/uL (0.0-1.1) Eosinophils # (Auto) 0.4 x10^3/uL (0.0-0.7) Basophils # (Auto) 0.1 x10^3/uL (0.0-0.2) Sodium Level 142 mmol/L (136-145) Potassium Level 3.6 mmol/L (3.5-5.1) Chloride Level 107 mmol/L (98-107) Carbon Dioxide Level 25 mmol/L (21-32) Anion Gap 10 (6-14) Blood Urea Nitrogen 3 mg/dL (7-20) Creatinine 0.7 mg/dL (0.6-1.0) Estimated GFR (Cockcroft-Gault) 98.9 BUN/Creatinine Ratio 4 (6-20) Glucose Level 82 mg/dL (70-99) Calcium Level 8.2 mg/dL (8.5-10.1) Total Bilirubin 0.7 mg/dL (0.2-1.0) Aspartate Amino Transf (AST/SGOT) 15 U/L (15-37) Alanine Aminotransferase (ALT/SGPT) 10 U/L (14-59) Alkaline Phosphatase 54 U/L (46-116) Total Protein 6.2 g/dL (6.4-8.2) Albumin 3.0 g/dL (3.4-5.0) Albumin/Globulin Ratio 0.9 (1.0-1.7) Review of Systems Review of Systems Pt reports mild upper abdominal pain Denies CP, SOB, FRANK, n/v Assessment and Plan Assessmemt and Plan Problems Medical Problems: (1) Abdominal pain Status: Acute (2) Urinary tract infection Status: Acute Assessment Abdominal Pain UTI ?Cholecystitis ?PUD Mild Anemia H/o appendectomy, tubal ligation FHx of CRC, IBD Plan EGD today w/ Dr. Mata- r/o ulcers IV rocephin for UTI IV protonix IVF DVT prophylaxis Follow labs Discharge dispo pending Appreciate further GI recs Comment Review of Relevant I have reviewed the following items tho (where applicable) has been applied. Labs Laboratory Tests Test 10/05/18 06:09 White Blood Count 5.8 x10^3/uL (4.0-11.0) Red Blood Count 3.91 x10^6/uL (3.50-5.40) Hemoglobin 11.7 g/dL (12.0-15.5) Hematocrit 34.5 % (36.0-47.0) Mean Corpuscular Volume 88 fL (79-100) Mean Corpuscular Hemoglobin 30 pg (25-35) Mean Corpuscular Hemoglobin Concent 34 g/dL (31-37) Red Cell Distribution Width 13.6 % (11.5-14.5) Platelet Count 258 x10^3/uL (140-400) Neutrophils (%) (Auto) 41 % (31-73) Lymphocytes (%) (Auto) 43 % (24-48) Monocytes (%) (Auto) 8 % (0-9) Eosinophils (%) (Auto) 7 % (0-3) Basophils (%) (Auto) 1 % (0-3) Neutrophils # (Auto) 2.4 x10^3uL (1.8-7.7) Lymphocytes # (Auto) 2.5 x10^3/uL (1.0-4.8) Monocytes # (Auto) 0.5 x10^3/uL (0.0-1.1) Eosinophils # (Auto) 0.4 x10^3/uL (0.0-0.7) Basophils # (Auto) 0.1 x10^3/uL (0.0-0.2) Sodium Level 142 mmol/L (136-145) Potassium Level 3.6 mmol/L (3.5-5.1) Chloride Level 107 mmol/L (98-107) Carbon Dioxide Level 25 mmol/L (21-32) Anion Gap 10 (6-14) Blood Urea Nitrogen 3 mg/dL (7-20) Creatinine 0.7 mg/dL (0.6-1.0) Estimated GFR (Cockcroft-Gault) 98.9 BUN/Creatinine Ratio 4 (6-20) Glucose Level 82 mg/dL (70-99) Calcium Level 8.2 mg/dL (8.5-10.1) Total Bilirubin 0.7 mg/dL (0.2-1.0) Aspartate Amino Transf (AST/SGOT) 15 U/L (15-37) Alanine Aminotransferase (ALT/SGPT) 10 U/L (14-59) Alkaline Phosphatase 54 U/L (46-116) Total Protein 6.2 g/dL (6.4-8.2) Albumin 3.0 g/dL (3.4-5.0) Albumin/Globulin Ratio 0.9 (1.0-1.7) Laboratory Tests Test 10/05/18 06:09 White Blood Count 5.8 x10^3/uL (4.0-11.0) Red Blood Count 3.91 x10^6/uL (3.50-5.40) Hemoglobin 11.7 g/dL (12.0-15.5) Hematocrit 34.5 % (36.0-47.0) Mean Corpuscular Volume 88 fL (79-100) Mean Corpuscular Hemoglobin 30 pg (25-35) Mean Corpuscular Hemoglobin Concent 34 g/dL (31-37) Red Cell Distribution Width 13.6 % (11.5-14.5) Platelet Count 258 x10^3/uL (140-400) Neutrophils (%) (Auto) 41 % (31-73) Lymphocytes (%) (Auto) 43 % (24-48) Monocytes (%) (Auto) 8 % (0-9) Eosinophils (%) (Auto) 7 % (0-3) Basophils (%) (Auto) 1 % (0-3) Neutrophils # (Auto) 2.4 x10^3uL (1.8-7.7) Lymphocytes # (Auto) 2.5 x10^3/uL (1.0-4.8) Monocytes # (Auto) 0.5 x10^3/uL (0.0-1.1) Eosinophils # (Auto) 0.4 x10^3/uL (0.0-0.7) Basophils # (Auto) 0.1 x10^3/uL (0.0-0.2) Sodium Level 142 mmol/L (136-145) Potassium Level 3.6 mmol/L (3.5-5.1) Chloride Level 107 mmol/L (98-107) Carbon Dioxide Level 25 mmol/L (21-32) Anion Gap 10 (6-14) Blood Urea Nitrogen 3 mg/dL (7-20) Creatinine 0.7 mg/dL (0.6-1.0) Estimated GFR (Cockcroft-Gault) 98.9 BUN/Creatinine Ratio 4 (6-20) Glucose Level 82 mg/dL (70-99) Calcium Level 8.2 mg/dL (8.5-10.1) Total Bilirubin 0.7 mg/dL (0.2-1.0) Aspartate Amino Transf (AST/SGOT) 15 U/L (15-37) Alanine Aminotransferase (ALT/SGPT) 10 U/L (14-59) Alkaline Phosphatase 54 U/L (46-116) Total Protein 6.2 g/dL (6.4-8.2) Albumin 3.0 g/dL (3.4-5.0) Albumin/Globulin Ratio 0.9 (1.0-1.7) Medications Current Medications Ceftriaxone Sodium (Rocephin) 1 gm 1X ONCE IVP Last administered on 10/04/18at 16:18; Start 10/04/18 at 16:00; Stop 10/04/18 at 16:01; Status DC Ondansetron HCl (Zofran) 4 mg PRN Q8HRS PRN IV NAUSEA/VOMITING; Start 10/04/18 at 16:45; Stop 10/05/18 at 16:44 Fentanyl Citrate (Fentanyl 2ml Vial) 50 mcg PRN Q1HR PRN IV PAIN Last administered on 10/05/18at 08:04; Start 10/04/18 at 16:45; Stop 10/05/18 at 16:44 Sodium Chloride 1,000 ml @ 100 mls/hr 1X ONCE IV Last administered on at 18:43; Start 10/04/18 at 16:45; Stop 10/05/18 at 02:44; Status DC Ceftriaxone Sodium (Rocephin) 1 gm Q24H IVP ; Start 10/05/18 at 18:45 Ondansetron HCl (Zofran Odt) 4 mg PRN Q8HRS PRN PO NAUSEA/VOMITING; Start 10/04 at 19:00 Enoxaparin Sodium (Lovenox 40mg Syringe) 40 mg Q24H SQ ; Start 10/04/18 at 19:00 Active Scripts Active Zofran Odt (Ondansetron) 4 Mg Tab.rapdis 4 Mg PO Q8HRS PRN Macrobid 100 Mg Capsule (Nitrofurantoin Monohyd/M-Cryst) 100 Mg Capsule 100 Mg PO Q12HR Vitals/I & O Vital Sign - Last 24 Hours 10/04/18 10/04/18 10/04/18 3/21/19 15:23 16:00 16:30 17:00 Temp 97.6 97.6 Pulse 80 84 84 84 Resp 18 B/P (MAP) 112/55 (74) 109/69 (82) 111/67 (82) 96/52 (67) Pulse Ox 100 97 97 100 O2 Delivery Room Air Room Air Room Air Room Air 10/04/18 10/04/18 10/04/18 10/04/18 18:15 18:32 18:41 19:15 Temp 98.1 98.1 Pulse 68 B/P (MAP) 106/70 (82) Pulse Ox 100 100 O2 Delivery Room Air Room Air 10/04/18 10/04/18 10/04/18 10/04/18 20:05 21:00 23:13 23:23 Temp 97.9 97.9 Pulse 88 Resp 18 B/P (MAP) 100/44 (62) Pulse Ox 100 100 98 O2 Delivery Room Air Room Air Room Air Room Air 10/05/18 10/05/18 10/05/18 10/05/18 03:38 04:23 07:00 08:00 Temp 98.3 98.1 98.3 98.1 Pulse 72 59 Resp 16 17 B/P (MAP) 95/48 (64) 92/49 (63) Pulse Ox 96 96 O2 Delivery Room Air Room Air Room Air Room Air 10/05/18 10/05/18 10/05/18 08:04 08:34 11:00 Temp 98.1 98.1 Pulse 71 Resp 16 B/P (MAP) 107/60 (76) Pulse Ox 98 O2 Delivery Room Air Room Air Room Air Intake and Output 10/04/18 10/04/18 10/05/18 14:59 22:59 06:59 Intake Total 480 ml Balance 480 ml LILO HSU III DO Oct 05, 2018 11:57
[2018-10-05 12:16] LABS: U PREG PATIENT NEGATIVE (NEG)
[2018-10-05] MEDS ORDERED: PROPOFOL 20 ML IV ONE (12:25)
[2018-10-05] MEDS ORDERED: LIDOCAINE 2% PF 5 ML VIAL. ONE (12:25)
--- NOTE | 2018-10-05 12:27 | DS ---
DATE OF DISCHARGE: 10/05/2018 ADMISSION DIAGNOSES: Urinary tract infection and possible cholecystitis. DISCHARGE DIAGNOSIS: Resolving urinary tract infection. CONSULTS: GI. PROCEDURES: EGD, which is still pending. HOSPITAL COURSE: The patient is a pleasant 28-year-old female who presented with UTI and possible cholecystitis. She had abdominal pain. She was admitted overnight. We gave her IV antibiotics and fluids. This morning, I saw her and examined her. Her heart tones were normal. Her lungs were clear. Her abdomen was feeling much better. She wants to go home. I plan to discharge if okay with GI. I was told few months ago that she is going to go ahead for an EGD, so we are going to go ahead and put the discharge and if the EGD is normal, we plan to discharge. DISPOSITION: Home. ACTIVITY: As tolerated. DIET: Low sodium. MEDICATIONS: Please see the MRAD. TOTAL TIME: 32 minutes. LILO HSU DO DR: JOSE A/mango JOB#: [id number] / [id number]
[2018-10-05] MEDS ORDERED: IV RINGERS,LACTATED 1000ML 1,000 ML IV ONE (12:30)
[2018-10-05 12:55] VITALS: BP 107/75
[2018-10-05] MEDS ORDERED: PANTOPRAZOLE 40 MG TABLET.DR. PO SCH (14:00)
--- NOTE | 2018-10-05 17:26 | NUR ---
Pt returned to unit to sign paperwork and get her prescriptions. IV was no longer in place. Discussed paperwork and prescriptions with her. She verbalized understanding.
[2018-10-05] MEDS ORDERED: cefTRIAXone IV Push 1 GM VIAL. IVP SCH (18:45)
--- NOTE | 2018-10-08 15:06 | PATHOLOGY ---
[facility] Accession Number: [id number] . 01 Material submitted: . PART A: GREATER CURVATURE PART B: ANTRUM . 01 Clinical history: . Pre-OP DX: Abdominal pain Post-OP DX: Pending, rule out H. pylori . 02 Diagnosis: A. Gastric biopsy, greater curvature: - Mild superficial chronic gastritis. . B. Gastric biopsy, antrum: - Mild superficial chronic gastritis. (JPM:leigh ann; 10/08/2018) QMS/10/08/2018 . 02 Comment: Sections of the greater curvature biopsy reveal a segment of gastric body mucosa showing mild superficial chronic inflammation. A properly controlled immunoperoxidase stain for Helicobacter is negative for Helicobacter organisms. . Sections of the gastric antral biopsy also reveal a segment of gastric body mucosa showing mild superficial chronic inflammation. A properly controlled immunoperoxidase stain for Helicobacter is negative for Helicobacter organisms. (JPM:leigh ann; 10/08/2018) . . Special stain performed: Immunoperoxidase stain for Helicobacter on A1 and B1. . 02 Electronically signed: . Amando Azevedo MD, Pathologist NPI- [id number] . 01 Gross description: . A. Received in formalin labeled "Dawyne, Syl, greater curvature," is a single segment of fraga soft tissue measuring 0.8 cm in maximum dimension. The specimen is entirely submitted in cassette A1. . B. Received in formalin labeled "Dwayne, Syl, antrum," is a single segment of fraga soft tissue measuring 0.9 cm in maximum dimension. The specimen is entirely submitted in cassette B1. (TSD; 10/05/2018) TOB/TOB . 02 Pathologist provided ICD-10: K29.30 . 02 CPT . 347388, 323444, [id number] Specimen Comment: A courtesy copy of this report has been sent to Specimen Comment: [phone], , , . Specimen Comment: Report sent to ,DR BRADSHAW / DR DE LEON Specimen Comment: DR MARIE Specimen Comment: A duplicate report has been generated due to demographic updates. Performed at: 01 [facility] [address] [facility] [address], [place] [id number] MD Jaison Oneil MD Phone: [phone] Performed at: 02 [facility] [address] [place], [place] [id number] MD Amando Azevedo MD Phone: [phone]
== END 2018-10-05 17:31 | disposition home or self-care (01) | DRG 690 ==
LOC: ER 14:43 → 4 NORTH 15:45
PROVIDERS: ADMIT Family Medicine; ATTEND Family Medicine
PROC: 0DJ08ZZ Inspection of Upper Intestinal Tract, Via Natural or Artificial Opening Endoscopic (ICD-10-PCS; principal; 2018-10-05 12:30)
DX: N39.0 Urinary tract infection, site not specified (principal); K29.00 Acute gastritis without bleeding; K81.9 Cholecystitis, unspecified; Z90.49 Acquired absence of other specified parts of digestive tract; Z98.51 Tubal ligation status; Z82.49 Family history of ischemic heart disease and other diseases of the circulatory system; F12.90 Cannabis use, unspecified, uncomplicated; F17.210 Nicotine dependence, cigarettes, uncomplicated; Z80.9 Family history of malignant neoplasm, unspecified; D64.9 Anemia, unspecified
CPT/HCPCS: 36415; 43239; 74176; 80053; 81025; 85025; 88305; 88342; 96374; J0696; J2001; J2704; J3010; J7030; J7120; 99285-25

== ENCOUNTER 2019-04-02 22:32 | Emergency (ER) | payer SELFPAY ==
[~2019-04-02] VITALS: Ht 160 cm; Wt 62.6 kg
--- NOTE | 2019-04-02 22:53 | PHYS DOC ---
Past Medical History Past Medical History: No Pertinent History Past Surgical History: Appendectomy, , Tubal ligation Additional Past Surgical Histo: SINUS SX Alcohol Use: None Drug Use: Marijuana Critical Care Time Critical care time was 35 minutes exclusive of procedures. Adult General Chief Complaint Chief Complaint: ALTERED MENTAL STATUS HPI HPI 28-year-old female presents to the emergency department unresponsive. Patient has evidence of track cedeno appreciated bilateral extremities. She arrives via private car and was dropped off. Patient was brought back to the emergency department, placed on bag valve mask with respiratory assistance given unresponsive and decreased respiratory effort. 0.4 mg Narcan �2 given with improvement of patient's mental status. Patient apparently has taken injection of heroin unknown amount. She is enrolled in rehabilitation to start April 16. Patient is more awake at this time, denies any nausea, vomiting, chest pain, s hortness of breath, abdominal pain. Review of Systems Review of Systems Constitutional: Denies fever or chills [] Eyes: Denies change in visual acuity, redness, or eye pain [] HENT: Denies nasal congestion or sore throat [] Respiratory: Denies cough or shortness of breath [] Cardiovascular: No additional information not addressed in HPI [] GI: Denies abdominal pain, nausea, vomiting, bloody stools or diarrhea [] : Denies dysuria or hematuria [] Musculoskeletal: Denies back pain or joint pain [] Integument: Denies rash or skin lesions [] Neurologic: Denies headache, focal weakness or sensory changes [] Endocrine: Denies polyuria or polydipsia [] All other systems were reviewed and found to be within normal limits, except as documented in this note. Current Medications Current Medications Current Medications Medications (Trade) Dose Ordered Sig/Robbin Start Time Stop Time Status Last Admin Dose Admin Naloxone HCl (Narcan) 0.4 mg 1X ONCE 04/02/19 23:00 04/02/19 23:01 DC Allergies Allergies Allergies Coded Allergies Type Severity Reaction Last Updated Verified Iodinated Contrast Media Allergy Intermediate Hives 04/02/19 Yes Physical Exam Physical Exam Constitutional: unresponsive, minimal resp effort upon arrival HENT: Normocephalic, atraumatic, bilateral external ears normal, oropharynx moist, no oral exudates, nose normal. [] Eyes: pupils pinpoint on exam, EOMI Cardiovascular: tachycardia, no murmur Lungs & Thorax: Bilateral breath sounds clear to auscultation [] Abdomen: Bowel sounds normal, soft, no tenderness, no masses, no pulsatile masses. [] Skin: Warm, dry, no erythema, no rash, track cedeno appreciated to bilateral upper ext and leg Back: No tenderness, no CVA tenderness. [] Extremities: No tenderness, no cyanosis, no clubbing, ROM intact, no edema. [] Neurologic: unresponsive upon initial eval however after narcan, mental status improved alert/oriented x 2 Psychologic: Affect normal, judgement normal, mood normal. [] Current Patient Data Lab Values Laboratory Tests Test 04/02/19 23:00 04/02/19 23:12 04/02/19 23:25 Urine Collection Type Unknown Urine Color Yellow Urine Clarity Cloudy Urine pH 6.0 Urine Specific Terrell 1.020 Urine Protein 100 mg/dL (NEG-TRACE) Urine Glucose (UA) 100 mg/dL (NEG) Urine Ketones (Stick) Negative mg/dL (NEG) Urine Blood Moderate (NEG) Urine Nitrite Positive (NEG) Urine Bilirubin Negative (NEG) Urine Urobilinogen Dipstick 0.2 mg/dL (0.2 mg/dL) Urine Leukocyte Esterase Moderate (NEG) Urine RBC 11-20 /HPF (0-2) Urine WBC Tntc /HPF (0-4) Urine Squamous Epithelial Cells Mod /LPF Urine Bacteria Many /HPF (0-FEW) Urine Mucus Marked /LPF Urine Opiates Screen Pos (NEG) Urine Methadone Screen Neg (NEG) Urine Barbiturates Neg (NEG) Urine Phencyclidine Screen Neg (NEG) Urine Amphetamine/Methamphetamine Pos (NEG) Urine Benzodiazepines Screen Pos (NEG) Urine Cocaine Screen Neg (NEG) Urine Cannabinoids Screen Pos (NEG) Urine Ethyl Alcohol Neg (NEG) POC Urine HCG, Qualitative Hcg negative (Negative) White Blood Count 20.3 x10^3/uL (4.0-11.0) H Red Blood Count 4.43 x10^6/uL (3.50-5.40) Hemoglobin 13.1 g/dL (12.0-15.5) Hematocrit 39.2 % (36.0-47.0) Mean Corpuscular Volume 88 fL (79-100) Mean Corpuscular Hemoglobin 30 pg (25-35) Mean Corpuscular Hemoglobin Concent 34 g/dL (31-37) Red Cell Distribution Width 16.8 % (11.5-14.5) H Platelet Count 273 x10^3/uL (140-400) Neutrophils (%) (Auto) 88 % (31-73) H Lymphocytes (%) (Auto) 6 % (24-48) L Monocytes (%) (Auto) 5 % (0-9) Eosinophils (%) (Auto) 0 % (0-3) Basophils (%) (Auto) 0 % (0-3) Neutrophils # (Auto) 17.8 x10^3/uL (1.8-7.7) H Lymphocytes # (Auto) 1.2 x10^3/uL (1.0-4.8) Monocytes # (Auto) 1.1 x10^3/uL (0.0-1.1) Eosinophils # (Auto) 0.1 x10^3/uL (0.0-0.7) Basophils # (Auto) 0.1 x10^3/uL (0.0-0.2) Segmented Neutrophils % 80 % (35-66) H Band Neutrophils % 3 % (0-9) Lymphocytes % 12 % (24-48) L Monocytes % 5 % (0-10) Platelet Estimate Adequate (ADEQUATE) Sodium Level 144 mmol/L (136-145) Potassium Level 4.0 mmol/L (3.5-5.1) Chloride Level 107 mmol/L (98-107) Carbon Dioxide Level 26 mmol/L (21-32) Anion Gap 11 (6-14) Blood Urea Nitrogen 12 mg/dL (7-20) Creatinine 1.2 mg/dL (0.6-1.0) H Estimated GFR (Cockcroft-Gault) 53.1 BUN/Creatinine Ratio 10 (6-20) Glucose Level 150 mg/dL (70-99) H Calcium Level 9.1 mg/dL (8.5-10.1) Total Bilirubin 0.3 mg/dL (0.2-1.0) Aspartate Amino Transferase (AST) 95 U/L (15-37) H Alanine Aminotransferase (ALT) 73 U/L (14-59) H Alkaline Phosphatase 129 U/L (46-116) H Total Protein 7.5 g/dL (6.4-8.2) Albumin 4.0 g/dL (3.4-5.0) Albumin/Globulin Ratio 1.1 (1.0-1.7) Laboratory Tests 04/02/19 23:25 Laboratory Tests 04/02/19 23:25 EKG EKG [] Radiology/Procedures Radiology/Procedures [] Course & Med Decision Making Course & Med Decision Making Pertinent Labs and Imaging studies reviewed. (See chart for details) []28-year-old female presents to the emergency department unresponsive. Patient has evidence of track cedeno appreciated bilateral extremities. She arrives via private car and was dropped off. Patient was brought back to the emergency department, placed on bag valve mask with respiratory assistance given unresponsive and decreased respiratory effort. 0.4 mg Narcan �2 given with improvement of patient's mental status. Patient apparently has taken injection of heroin unknown amount. She is enrolled in rehabilitation to start April 16. Patient is more awake at this time, denies any nausea, vomiting, chest pain, shortness of breath, abdominal pain. Discussed lab findings with patient. Evidence of UTI. Plan for abx therapy upon discharge. Recommend cessation of heroin use. Keep appt as planned for rehab Dragon Disclaimer Dragon Disclaimer This electronic medical record was generated, in whole or in part, using a voice recognition dictation system. Critical Care Time Critical care time was 35 minutes exclusive of procedures. Departure Departure Impression: Primary Impression: Accidental heroin overdose Additional Impression: Urinary tract infection Disposition: HOME, SELF-CARE Condition: IMPROVED Referrals: KIESHA DE LEON MD (PCP) Additional Instructions: Recommend taking antibiotic as written Recommend keeping appointment for rehab as planned Recommend refraining from heroin use Return to the ER with altered mental status, fever, SOB Scripts Cephalexin (KEFLEX) 500 Mg Capsule 500 MG PO QID for 3 Days, #12 CAP Prov: SHANTANU MCKINLEY MD 04/03/19 Problem Qualifiers Primary Impression: Accidental heroin overdose Encounter type: initial encounter Qualified Codes: T40.1X1A - Poisoning by heroin, accidental (unintentional), initial encounter Additional Impression: Urinary tract infection Urinary tract infection type: site unspecified Hematuria presence: without hematuria Qualified Codes: N39.0 - Urinary tract infection, site not specified SHANTANU MCKINLEY MD Apr 02, 2019 22:53
[2019-04-02] MEDS ORDERED: NALOXONE 0.4 MG/ML VIAL. IV ONE ×2 (23:00)
[2019-04-02 23:27] LABS: BILIRUBIN,URINE NEGATIVE (NEG); CLARITY,URINE CLOUDY; COLOR,URINE YELLOW; NITRITE,URINE POSITIVE (NEG); PROTEIN,URINE 100 mg/dL (NEG-TRACE); UROBILINOGEN,URINE 0.2 mg/dL (0.2 mg/dL)
[2019-04-02 23:33] LABS: SQUAMOUS EPITHELIAL CELL,UR MOD /LPF
[2019-04-02 23:34] LABS: BASO # 0.1 x10^3/uL (0.0-0.2); BASO % 0 % (0-3); EOS # 0.1 x10^3/uL (0.0-0.7); EOS % 0 % (0-3); HEMATOCRIT 39.2 % (36.0-47.0); HEMOGLOBIN 13.1 g/dL (12.0-15.5); LYMPH # 1.2 x10^3/uL (1.0-4.8); LYMPH % 6 % (24-48); MEAN CORPUSCULAR HEMOGLOBIN 30 pg (25-35); MEAN CORPUSCULAR HGB CONC 34 g/dL (31-37); MEAN CORPUSCULAR VOLUME 88 fL (79-100); MONO # 1.1 x10^3/uL (0.0-1.1); MONO % 5 % (0-9); NEUT # 17.8 x10^3/uL (1.8-7.7); NEUT % 88 % (31-73); PLATELET COUNT 273 x10^3/uL (140-400); RED BLOOD COUNT 4.43 x10^6/uL (3.50-5.40); RED CELL DISTRIBUTION WIDTH 16.8 % (11.5-14.5); WHITE BLOOD COUNT 20.3 x10^3/uL (4.0-11.0)
[2019-04-02 23:34] LABS: BACTERIA,URINE MANY /HPF (0-FEW); BARBITURATES NEG (NEG); BENZODIAZEPINES POS (NEG); CANNABINOIDS POS (NEG); COCAINE NEG (NEG); METHADONE NEG (NEG); OPIATES POS (NEG); PHENCYCLIDINE NEG (NEG); WBC,URINE TNTC /HPF (0-4)
[2019-04-02 23:35] LABS: AMPHETAMINE/METHAMPHETAMINE POS (NEG)
[2019-04-02 23:53] LABS: CALCIUM 9.1 mg/dL (8.5-10.1); CREATININE 1.2 mg/dL (0.6-1.0); GFR 53.1
[2019-04-02 23:56] LABS: % BANDS 3 % (0-9); % LYMPHS 12 % (24-48); % MONOS 5 % (0-10); % SEGS 80 % (35-66); PLT ESTIMATE ADEQUATE (ADEQUATE)
[2019-04-02 23:57] LABS: ALBUMIN/GLOBULIN RATIO 1.1 (1.0-1.7); TOTAL BILIRUBIN 0.3 mg/dL (0.2-1.0); TOTAL PROTEIN 7.5 g/dL (6.4-8.2)
[2019-04-03] MEDS ORDERED: CEPH-264 PO (00:26)
[2019-04-03 03:30] VITALS: BP 111/51
--- NOTE | 2019-04-03 04:58 | EKG ---
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
== END 2019-04-03 04:00 | disposition home or self-care (01) ==
LOC: ER 22:32
DX: T40.1X1A Poisoning by heroin, accidental (unintentional), initial encounter (principal); Z90.89 Acquired absence of other organs; Z98.890 Other specified postprocedural states; Z98.51 Tubal ligation status; Z91.041 Radiographic dye allergy status; Y92.89 Other specified places as the place of occurrence of the external cause
CPT/HCPCS: 36415; 80053; 80307; 81001; 81025; 85007; 85025; 87086; 93005; 96374; 99285; J2310

== ENCOUNTER 2020-02-05 13:04 | Inpatient (IN) | payer SELFPAY ==
[~2020-02-05] VITALS: Ht 162.6 cm; Wt 59.0 kg
[~2020-02-05 13:04] MED LIST changes: +CEPH-264 PO
[2020-02-05] MEDS ORDERED: MORPHINE SULFATE 4 MG/ML VIAL. IV ONE (14:00)
[2020-02-05] MEDS ORDERED: IV NORMAL SALINE 1000ML BAG 1,000 ML IV ONE (14:00)
[2020-02-05] MEDS ORDERED: ONDANSETRON PF 4 MG/2 ML VIAL. IV ONE (14:00)
[2020-02-05] MEDS ORDERED: LIDOCAINE 1% PF 2 ML VIAL. INJ ONE (14:00)
--- NOTE | 2020-02-05 14:01 | PHYS DOC ---
Past Medical History Past Medical History: No Pertinent History Past Surgical History: Appendectomy, , Tubal ligation Additional Past Surgical Histo: SINUS SX Smoking Status: Current Every Day Smoker Alcohol Use: None Drug Use: Heroin, Marijuana General Adult EDM: Chief Complaint: ABSCESS HPI: HPI: Patient is a 29 year old female who presents with abscess to right hand. Patient reports that she was cleaning out her garage a week ago and does not know if she cut her hand or she got bit by an insect. She states that the swelling and pain has worsened over the last week. She attempted to drain the abscess herself yesterday but was unable to get any drainage out. There is redness and swelling to the right hand. Patient rates pain 8 out of 10, it radiates to her right forearm, pain is improved with elevation and warm compresses, she has been taking ibuprofen without any relief of pain, there are no aggravating factor. Patient burned her left forearm at work and was given Cipro by her primary care doctor and has been taking that for 2 days. Patient denies chest pain, shortness of air, nausea, vomiting, fevers, chills. The patient states that she is currently living in a senior care, she is recovering heroin addict and states she has not used heroin for the last 2 months. Review of Systems: Review of Systems: Constitutional: Denies fever or chills. [] Musculoskeletal: See HPI [] Integument: See HPI Psychiatric: Denies depression or anxiety. [] Heart Score: Risk Factors: Risk Factors: DM, Current or recent (<one month) smoker, HTN, HLP, family history of CAD, obesity. Risk Scores: Score 0 - 3: 2.5% MACE over next 6 weeks - Discharge Home Score 4 - 6: 20.3% MACE over next 6 weeks - Admit for Clinical Observation Score 7 - 10: 72.7% MACE over next 6 weeks - Early Invasive Strategies Allergies: Allergies: Allergies Coded Allergies Type Severity Reaction Last Updated Verified Iodinated Contrast Media Allergy Intermediate Hives 04/02/19 Yes Physical Exam: PE: Constitutional: Well developed, well nourished, no acute distress, non-toxic appearance. [] HENT: Normocephalic, atraumatic, bilateral external ears normal, nose normal. [] Eyes: PERRLA, EOMI, conjunctiva normal, no discharge. [] Neck: Normal range of motion, no stridor. [] Cardiovascular:Heart rate regular rhythm Lungs & Thorax: Respirations even and unlabored, no retractions, no respiratory distress Skin: Right hand: Circular area of erythema and warmth measuring 5 cm x 5 cm, to dorsal surface of right hand with yellow drainage consistent with abscess; red streaking up right forearm Extremities: Right hand: No cyanosis, ROM intact, localized edema to abscess site, 2+ radial pulse, cap refill less than 2 seconds, sensation intact Neurologic: Alert and oriented X 3, no focal deficits noted. [] Psychologic: Affect normal, judgement normal, mood normal. [] Current Patient Data: Vital Signs: Vital Signs Date Time Temp Pulse Resp B/P (MAP) Pulse Ox O2 Delivery O2 Flow Rate FiO2 02/05/20 13:38 98.5 84 18 112/59 (76) 96 Room Air 98.5 EKG: EKG: [] Radiology/Procedures: Radiology/Procedures: PROCEDURE: HAND RIGHT 3V HAND RIGHT 3V 02/05/2020 2:28 PM INDICATION: Abscess, pain and swelling COMPARISON: None available. TECHNIQUE: 3 views of the right hand are provided. FINDINGS/ IMPRESSION: 1. Soft tissue swelling along the dorsum of the hand. No subcutaneous gas is identified. No radiopaque foreign density. No osseous erosion. No acute fracture or dislocation. Joint spaces are maintained. Bone mineralization is within normal limits.[] Indication: abscess Procedure: The patient was positioned appropriately. Local anesthesia was 1% lidocaine. An incision was then made over the apex of the lesion using an 11 blade scalpel and a moderate amount of purulent material was expressed. The patient did not tolerate procedure well, there was minimal blood loss. The site was not irrigated due to patient pain intolerance. Complications: none. Course & Med Decision Making: Course & Med Decision Making Pertinent Labs and Imaging studies reviewed. (See chart for details) [id number] with Dr. Joe who is the admitting physician, and care was assumed following discussion of patient. Will admit patient for right hand abscess and cellulitis and URI. Will order COVID-19 swab as requested. Advised admitting physician that vancomycin have been ordered for pharmacy to dose. Patient's vital signs stable. Patient remains afebrile, appears nontoxic, respirations even and unlabored. Patient will be admitted to the med/surge floor. Patient's case and plan of care also discussed with Dr. Cardona [] Giuliano Disclaimer: Giuliano Disclaimer: This electronic medical record was generated, in whole or in part, using a voice recognition dictation system. 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
--- NOTE | 2020-02-05 14:59 | RAD ---
HAND RIGHT 3V 02/05/2020 2:28 PM INDICATION: Abscess, pain and swelling COMPARISON: None available. TECHNIQUE: 3 views of the right hand are provided. FINDINGS/ IMPRESSION: 1. Soft tissue swelling along the dorsum of the hand. No subcutaneous gas is identified. No radiopaque foreign density. No osseous erosion. No acute fracture or dislocation. Joint spaces are maintained. Bone mineralization is within normal limits. Electronically signed by: Lisa Henry MD (02/05/2020 2:56 PM) [id number]
[2020-02-05 15:25] LABS: BASO # 0.1 x10^3/uL (0.0-0.2); BASO % 1 % (0-3); EOS # 0.4 x10^3/uL (0.0-0.7); EOS % 4 % (0-3); HEMATOCRIT 36.4 % (36.0-47.0); HEMOGLOBIN 12.3 g/dL (12.0-15.5); LYMPH # 1.7 x10^3/uL (1.0-4.8); LYMPH % 18 % (24-48); MEAN CORPUSCULAR HEMOGLOBIN 29 pg (25-35); MEAN CORPUSCULAR HGB CONC 34 g/dL (31-37); MEAN CORPUSCULAR VOLUME 85 fL (79-100); MONO # 0.8 x10^3/uL (0.0-1.1); MONO % 8 % (0-9); NEUT # 6.7 x10^3/uL (1.8-7.7); NEUT % 69 % (31-73); PLATELET COUNT 346 x10^3/uL (140-400); RED BLOOD COUNT 4.27 x10^6/uL (3.50-5.40); RED CELL DISTRIBUTION WIDTH 13.5 % (11.5-14.5); WHITE BLOOD COUNT 9.6 x10^3/uL (4.0-11.0)
[2020-02-05 15:26] LABS: CALCIUM 8.6 mg/dL (8.5-10.1); CREATININE 0.9 mg/dL (0.6-1.0); GFR 73.5; POTASSIUM 4.1 mmol/L (3.5-5.1)
[2020-02-05 15:32] LABS: ALBUMIN 3.7 g/dL (3.4-5.0); ALBUMIN/GLOBULIN RATIO 0.9 (1.0-1.7); TOTAL BILIRUBIN 0.8 mg/dL (0.2-1.0); TOTAL PROTEIN 7.8 g/dL (6.4-8.2)
[2020-02-05] MEDS ORDERED: ACETAMINOPHEN 325 MG TABLET. PO PRN (17:15)
[2020-02-05] MEDS ORDERED: ZOLPIDEM 5 MG TABLET. PO PRN (17:15)
[2020-02-05] MEDS ORDERED: guaiFENesin ORAL 200 MG/10 ML LIQUID. PO PRN (17:15)
[2020-02-05] MEDS ORDERED: DOCUSATE SODIUM 100 MG CAPSULE. PO PRN (17:15)
[2020-02-05] MEDS ORDERED: VANCOMYCIN PER PHARMACY MC PRN (17:15)
[2020-02-05] MEDS ORDERED: ONDANSETRON PF 4 MG/2 ML VIAL. IV PRN ×2 (17:15→17:45)
[2020-02-05] MEDS ORDERED: LORazepam 0.5 MG TABLET PO PRN (17:15)
[2020-02-05] MEDS ORDERED: KETOROLAC 15 MG/ML VIAL. IVP PRN (17:15)
[2020-02-05] MEDS ORDERED: ALBUTEROL SULFATE 2.5 MG/3 ML NEBU. NEB PRN (17:15)
[2020-02-05] MEDS: MORPHINE SULFATE 4 MG/ML VIAL. IV PRN ×2 (17:49→21:50)
[2020-02-05] MEDS ORDERED: VANCOMYCIN 1.5 GM in IV NORMAL SALINE 500ML BAG 500 ML IV ONE (18:00)
--- NOTE | 2020-02-05 18:12 | PDOC1 ---
History and Physical Date of Admission Date of Admission February 05, 2020 Identification/Chief Complaint Chief Complaint My hand hurts Source Source: Chart review, Patient History of Present Illness History of Present Illness Patient is a 29-year-old female with no significant past medical history who was in her usual state of health until approximately 2 to 3 days prior to her admission. 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 Of note is that the patient is a former IV drug abuser who has been clean for 2 months now since an overdose that she suffered during the wintertime. Patient at the present time lives in a half-way house as well. The patient denies any fever chills no diaphoresis no cough sputum production no upper respiratory tract infections have been reported. 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 Patient does not endorse a history of MRSA, no headache no nausea vomiting no abdominal pain no chest pain palpitations have been reported, no urinary symptoms, no other complaints have been reported by the patient at this time. She is quite tearful during my encounter due to the discomfort over the affected area. Plan of care has been explained detail and all of her concerns were addressed to the best of my abilities ER history: Past Medical History Past Medical History: No Pertinent History Past Surgical History: Appendectomy, , Tubal ligation Additional Past Surgical Histo: SINUS SX Smoking Status: Current Every Day Smoker Alcohol Use: None Drug Use: Heroin, Marijuana General Adult EDM: Chief Complaint: ABSCESS HPI: HPI: Patient is a 29 year old female who presents with abscess to right hand. Patient reports that she was cleaning out her garage a week ago and does not know if she cut her hand or she got bit by an insect. She states that the swelling and pain has worsened over the last week. She attempted to drain the abscess herself yesterday but was unable to get any drainage out. There is redness and swelling to the right hand. Patient rates pain 8 out of 10, it radiates to her right forearm, pain is improved with elevation and warm compresses, she has been taking ibuprofen without any relief of pain, there are no aggravating factor. Patient burned her left forearm at work and was given Cipro by her primary care doctor and has been taking that for 2 days. Patient denies chest pain, shortness of air, nausea, vomiting, fevers, chills. The patient states that she is currently living in a senior living, she is recovering heroin addict and states she has not used heroin for the last 2 months. Past Medical History Cardiovascular: No pertinent hx Pulmonary: No pertinent hx Psych: No pertinent hx Renal/: No pertinent hx Past Surgical History Past Surgical History: No pertinent history Family History Family History: Hypertension Social History Smoke: No ALCOHOL: none Drugs: Marijuana Current Problem List Problem List Problems Medical Problems: (1) Cellulitis and abscess of hand, except fingers and thumb Status: Acute (2) Person under investigation for COVID-19 Status: Acute Current Medications Current Medications Current Medications Medications (Trade) Dose Ordered Sig/Robbin Start Time Stop Time Status Last Admin Dose Admin Acetaminophen (Tylenol) 650 mg PRN Q4HRS PRN 02/05/20 17:15 Albuterol Sulfate (Ventolin Neb Soln) 2.5 mg PRN Q4HRS PRN 02/05/20 17:15 Docusate Sodium (Colace) 100 mg PRN BID PRN 02/05/20 17:15 Guaifenesin (Robitussin) 200 mg PRN Q4HRS PRN 02/05/20 17:15 Ketorolac Tromethamine (Toradol 15mg Vial) 15 mg PRN Q6HRS PRN 02/05/20 17:15 02/10/20 17:14 Lidocaine HCl (Xylocaine-Mpf 1% 2ml Vial) 4 ml 1X ONCE 02/05/20 14:00 02/05/20 14:02 DC 02/05/20 15:13 4 ML Lorazepam (Ativan) 0.5 mg PRN Q4HRS PRN 02/05/20 17:15 Morphine Sulfate (Morphine Sulfate) 4 mg PRN Q2HR PRN 02/05/20 17:45 02/06/20 17:44 02/05/20 17:49 4 MG Ondansetron HCl (Zofran) 4 mg PRN Q8HRS PRN 02/05/20 17:45 02/06/20 17:44 Sodium Chloride 1,000 ml @ 1,000 mls/hr 1X ONCE 02/05/20 14:00 02/05/20 14:59 DC 02/05/20 15:13 1,000 MLS/HR Vancomycin HCl (Vanco Per Pharmacy) 1 each PRN DAILY PRN 02/05/20 17:15 UNV Vancomycin HCl 1.5 gm/Sodium Chloride 500 ml @ 250 mls/hr 1X ONCE 02/05/20 18:00 02/05/20 19:59 02/05/20 17:37 250 MLS/HR Zolpidem Tartrate (Ambien) 5 mg PRN QHS PRN 02/05/20 17:15 Allergies Allergies Allergies Coded Allergies Type Severity Reaction Last Updated Verified Iodinated Contrast Media Allergy Intermediate Hives 04/02/19 Yes ROS Review of System CONSTITUTIONAL: No fever or chills EYES: No recent changes SKIN: No rash or itching CARDIOVASCULAR: No chest pain, syncope, palpitations, or edema RESPIRATORY: No SOB or cough GASTROINTESTINAL: No nausea, vomiting or abdominal pain NEUROLOGICAL: No headaches or weakness ENDOCRINE: No cold or heat intolerance GENITOURINARY: No urgency or frequency of urination MUSCULOSKELETAL: No back pain or joint pain LYMPHATICS: No enlarged lymph nodes PSYCHIATRIC: No anxiety or depression Physical Exam Physical Exam GEN.: No apparent distress. Alert and oriented. HEENT: Head is normocephalic, atraumatic NECK: Supple. LUNGS: Clear to auscultation. HEART: RRR, S1, S2 present. Peripheral pulses intact ABDOMEN: Soft, nontender. Positive bowel sounds. EXTREMITIES: Without any cyanosis. NEUROLOGIC: Normal speech, normal tone PSYCHIATRIC: Normal affect, normal mood. SKIN: No ulcerations Vitals Vitals Vital Signs Date Time Temp Pulse Resp B/P (MAP) Pulse Ox O2 Delivery O2 Flow Rate FiO2 02/05/20 17:49 16 100 Room Air 02/05/20 13:38 98.5 84 112/59 (76) 98.5 Labs Labs Laboratory Tests Test 02/05/20 15:07 White Blood Count 9.6 x10^3/uL (4.0-11.0) Red Blood Count 4.27 x10^6/uL (3.50-5.40) Hemoglobin 12.3 g/dL (12.0-15.5) Hematocrit 36.4 % (36.0-47.0) Mean Corpuscular Volume 85 fL (79-100) Mean Corpuscular Hemoglobin 29 pg (25-35) Mean Corpuscular Hemoglobin Concent 34 g/dL (31-37) Red Cell Distribution Width 13.5 % (11.5-14.5) Platelet Count 346 x10^3/uL (140-400) Neutrophils (%) (Auto) 69 % (31-73) Lymphocytes (%) (Auto) 18 % (24-48) Monocytes (%) (Auto) 8 % (0-9) Eosinophils (%) (Auto) 4 % (0-3) Basophils (%) (Auto) 1 % (0-3) Neutrophils # (Auto) 6.7 x10^3/uL (1.8-7.7) Lymphocytes # (Auto) 1.7 x10^3/uL (1.0-4.8) Monocytes # (Auto) 0.8 x10^3/uL (0.0-1.1) Eosinophils # (Auto) 0.4 x10^3/uL (0.0-0.7) Basophils # (Auto) 0.1 x10^3/uL (0.0-0.2) Sodium Level 133 mmol/L (136-145) Potassium Level 4.1 mmol/L (3.5-5.1) Chloride Level 98 mmol/L (98-107) Carbon Dioxide Level 27 mmol/L (21-32) Anion Gap 8 (6-14) Blood Urea Nitrogen 11 mg/dL (7-20) Creatinine 0.9 mg/dL (0.6-1.0) Estimated GFR (Cockcroft-Gault) 73.5 BUN/Creatinine Ratio 12 (6-20) Glucose Level 85 mg/dL (70-99) Lactic Acid Level 1.3 mmol/L (0.4-2.0) Calcium Level 8.6 mg/dL (8.5-10.1) Total Bilirubin 0.8 mg/dL (0.2-1.0) Aspartate Amino Transf (AST/SGOT) 25 U/L (15-37) Alanine Aminotransferase (ALT/SGPT) 37 U/L (14-59) Alkaline Phosphatase 70 U/L (46-116) Total Protein 7.8 g/dL (6.4-8.2) Albumin 3.7 g/dL (3.4-5.0) Albumin/Globulin Ratio 0.9 (1.0-1.7) Laboratory Tests Test 02/05/20 15:07 White Blood Count 9.6 x10^3/uL (4.0-11.0) Red Blood Count 4.27 x10^6/uL (3.50-5.40) Hemoglobin 12.3 g/dL (12.0-15.5) Hematocrit 36.4 % (36.0-47.0) Mean Corpuscular Volume 85 fL (79-100) Mean Corpuscular Hemoglobin 29 pg (25-35) Mean Corpuscular Hemoglobin Concent 34 g/dL (31-37) Red Cell Distribution Width 13.5 % (11.5-14.5) Platelet Count 346 x10^3/uL (140-400) Neutrophils (%) (Auto) 69 % (31-73) Lymphocytes (%) (Auto) 18 % (24-48) Monocytes (%) (Auto) 8 % (0-9) Eosinophils (%) (Auto) 4 % (0-3) Basophils (%) (Auto) 1 % (0-3) Neutrophils # (Auto) 6.7 x10^3/uL (1.8-7.7) Lymphocytes # (Auto) 1.7 x10^3/uL (1.0-4.8) Monocytes # (Auto) 0.8 x10^3/uL (0.0-1.1) Eosinophils # (Auto) 0.4 x10^3/uL (0.0-0.7) Basophils # (Auto) 0.1 x10^3/uL (0.0-0.2) Sodium Level 133 mmol/L (136-145) Potassium Level 4.1 mmol/L (3.5-5.1) Chloride Level 98 mmol/L (98-107) Carbon Dioxide Level 27 mmol/L (21-32) Anion Gap 8 (6-14) Blood Urea Nitrogen 11 mg/dL (7-20) Creatinine 0.9 mg/dL (0.6-1.0) Estimated GFR (Cockcroft-Gault) 73.5 BUN/Creatinine Ratio 12 (6-20) Glucose Level 85 mg/dL (70-99) Lactic Acid Level 1.3 mmol/L (0.4-2.0) Calcium Level 8.6 mg/dL (8.5-10.1) Total Bilirubin 0.8 mg/dL (0.2-1.0) Aspartate Amino Transf (AST/SGOT) 25 U/L (15-37) Alanine Aminotransferase (ALT/SGPT) 37 U/L (14-59) Alkaline Phosphatase 70 U/L (46-116) Total Protein 7.8 g/dL (6.4-8.2) Albumin 3.7 g/dL (3.4-5.0) Albumin/Globulin Ratio 0.9 (1.0-1.7) VTE Prophylaxis Ordered VTE Prophylaxis Devices: No VTE Pharmacological Prophylaxi: Yes Assessment/Plan Assessment/Plan Right hand cellulitis Right hand abscess History of IV drug abuse Hyponatremia secondary to 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
[2020-02-05] MEDS: VANCOMYCIN PER PHARMACY MC PRN (18:43)
--- NOTE | 2020-02-05 18:44 | NUR ---
Pharmacy Vancomycin Dosing Note S:Consulted to monitor and dose vancomycin started 02/05/20. O:KRISTI BARROS is a 29 year old F with right hand abcess . Height: 5 feet, 4 inches Weight: 59.0 kg [place] Body Weight: 54.70 Adjusted Body Weight: 56.42 Dosing Weight: Actual Other Antibiotics: - LABS: Last BUN: 11 Last Creatinine: 0.9 Creatinine Clearance: 81 mL/min Last WBC: 9.6 Last Procalcitonin: Tmax (past 24 hours): 98.5 Last dose given 02/05/20 at 1737 Vancomycin Dosing: Loading Dose: 1500 mg x1 Dosing Weight: Actual Target Trough: 10-20 A: Based on: weight and renal function P: 1. Begin Vancomycin 1000 mg IV q12h 2. Follow up Trough level on 02/07/20 at 0500 3. Pharmacy will continue to monitor, follow and adjust therapy as needed. Cecile Tomlinson RPH, 02/05/20 [id number]
[2020-02-05 19:15] VITALS: BP 98/52
[2020-02-05 23:53] LABS: BILIRUBIN,URINE NEGATIVE (NEG); COLOR,URINE YELLOW; NITRITE,URINE NEGATIVE (NEG); PH,URINE 6.5 (<5.0-8.0); PROTEIN,URINE NEGATIVE (NEG-TRACE); UROBILINOGEN,URINE 0.2 mg/dL (0.2 mg/dL)
[2020-02-05] MEDS ORDERED: no home meds (23:55)
[2020-02-05 23:57] VITALS: BP 103/44
[2020-02-05 23:58] LABS: CLARITY,URINE CLEAR
[2020-02-05 23:59] LABS: RBC,URINE 0 /HPF (0-2); SQUAMOUS EPITHELIAL CELL,UR FEW /LPF
[2020-02-06] LABS: BACTERIA,URINE 0 /HPF (0-FEW); BARBITURATES NEG (NEG); BENZODIAZEPINES NEG (NEG); CANNABINOIDS NEG (NEG); COCAINE NEG (NEG); METHADONE NEG (NEG); OPIATES POS (NEG); PHENCYCLIDINE NEG (NEG); WBC,URINE 0 /HPF (0-4)
[2020-02-06 00:01] LABS: AMPHETAMINE/METHAMPHETAMINE POS (NEG)
[2020-02-06] MEDS: MORPHINE SULFATE 4 MG/ML VIAL. IV PRN ×5 (00:31→16:35)
[2020-02-06 03:03] VITALS: BP 94/55
[2020-02-06] MEDS: VANCOMYCIN 1 GM in IV NORMAL SALINE 250ML 250 ML IV SCH ×2 (05:30→18:21)
[2020-02-06 07:00] VITALS: BP 92/52
[2020-02-06 07:32] LABS: CREATININE 0.8 mg/dL (0.6-1.0); GFR 84.2
--- NOTE | 2020-02-06 08:24 | PDOC ---
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 Of note is that the patient is a former IV drug abuser who has been clean for 2 months now since an overdose that she suffered during the wintertime. Patient at the present time lives in a long-term house as well. The patient denies any fever chills no diaphoresis no cough sputum production no upper respiratory tract infections have been reported. COVID 19 negative. Apparently ED attempted I&D without significant success. XR with no bony involvement. On further questioning today she relates that she is still actively using IV heroin and has had multiple abscesses incised and debrided previously including one on the right side of her face. I have let her know that knowing that she is actively using IV heroin after incision and debridement she cannot be given any more IV opioids and she is willing to try Suboxone therapy as she is previously been on methadone and previously been on Subutex and has since relapsed. She has a male visitor who she insists mostly present in the room. I have advised h er I will consult orthopedic surgery for consideration for I&D now that we know her COVID-19 test is negative. Vitals Vitals Vital Signs Date Time Temp Pulse Resp B/P (MAP) Pulse Ox O2 Delivery O2 Flow Rate FiO2 02/06/20 03:03 99.9 74 18 94/55 (68) 97 Room Air 99.9 Physical Exam General: Alert, Oriented X3, Cooperative Heart: Regular rate, Normal S1, Normal S2 Lungs: Clear Abdomen: Normal bowel sounds, Soft Extremities: Other (Right hand with 4x4 cm large fluctuant abscess) Labs LABS Laboratory Tests Test 02/05/20 15:07 02/05/20 18:13 02/05/20 23:50 02/06/20 05:15 White Blood Count 9.6 x10^3/uL (4.0-11.0) Red Blood Count 4.27 x10^6/uL (3.50-5.40) Hemoglobin 12.3 g/dL (12.0-15.5) Hematocrit 36.4 % (36.0-47.0) Mean Corpuscular Volume 85 fL (79-100) Mean Corpuscular Hemoglobin 29 pg (25-35) Mean Corpuscular Hemoglobin Concent 34 g/dL (31-37) Red Cell Distribution Width 13.5 % (11.5-14.5) Platelet Count 346 x10^3/uL (140-400) Neutrophils (%) (Auto) 69 % (31-73) Lymphocytes (%) (Auto) 18 % (24-48) Monocytes (%) (Auto) 8 % (0-9) Eosinophils (%) (Auto) 4 % (0-3) Basophils (%) (Auto) 1 % (0-3) Neutrophils # (Auto) 6.7 x10^3/uL (1.8-7.7) Lymphocytes # (Auto) 1.7 x10^3/uL (1.0-4.8) Monocytes # (Auto) 0.8 x10^3/uL (0.0-1.1) Eosinophils # (Auto) 0.4 x10^3/uL (0.0-0.7) Basophils # (Auto) 0.1 x10^3/uL (0.0-0.2) Sodium Level 133 mmol/L (136-145) Potassium Level 4.1 mmol/L (3.5-5.1) Chloride Level 98 mmol/L (98-107) Carbon Dioxide Level 27 mmol/L (21-32) Anion Gap 8 (6-14) Blood Urea Nitrogen 11 mg/dL (7-20) Creatinine 0.9 mg/dL (0.6-1.0) 0.8 mg/dL (0.6-1.0) Estimated GFR (Cockcroft-Gault) 73.5 84.2 BUN/Creatinine Ratio 12 (6-20) Glucose Level 85 mg/dL (70-99) Lactic Acid Level 1.3 mmol/L (0.4-2.0) Calcium Level 8.6 mg/dL (8.5-10.1) Total Bilirubin 0.8 mg/dL (0.2-1.0) Aspartate Amino Transf (AST/SGOT) 25 U/L (15-37) Alanine Aminotransferase (ALT/SGPT) 37 U/L (14-59) Alkaline Phosphatase 70 U/L (46-116) Total Protein 7.8 g/dL (6.4-8.2) Albumin 3.7 g/dL (3.4-5.0) Albumin/Globulin Ratio 0.9 (1.0-1.7) SARS-CoV-2 Antigen (Rapid) Negative (NEGATIVE) Urine Collection Type Unknown Urine Color Yellow Urine Clarity Clear Urine pH 6.5 (<5.0-8.0) Urine Specific [place] <=1.005 (1.000-1.030) Urine Protein Negative mg/dL (NEG-TRACE) Urine Glucose (UA) Negative mg/dL (NEG) Urine Ketones (Stick) Negative mg/dL (NEG) Urine Blood Negative (NEG) Urine Nitrite Negative (NEG) Urine Bilirubin Negative (NEG) Urine Urobilinogen Dipstick 0.2 mg/dL (0.2 mg/dL) Urine Leukocyte Esterase Negative (NEG) Urine RBC 0 /HPF (0-2) Urine WBC 0 /HPF (0-4) Urine Squamous Epithelial Cells Few /LPF Urine Bacteria 0 /HPF (0-FEW) Urine Opiates Screen Pos (NEG) Urine Methadone Screen Neg (NEG) Urine Barbiturates Neg (NEG) Urine Phencyclidine Screen Neg (NEG) Urine Amphetamine/Methamphetamine Pos (NEG) Urine Benzodiazepines Screen Neg (NEG) Urine Cocaine Screen Neg (NEG) Urine Cannabinoids Screen Neg (NEG) Urine Ethyl Alcohol Neg (NEG) Assessment and Plan Assessmemt and Plan Problems Medical Problems: (1) Cellulitis and abscess of hand, except fingers and thumb Status: Acute (2) Person under investigation for COVID-19 Status: Acute Comment Review of Relevant I have reviewed the following items tho (where applicable) has been applied. Labs Laboratory Tests Test 02/05/20 15:07 02/05/20 18:13 02/05/20 23:50 02/06/20 05:15 White Blood Count 9.6 x10^3/uL (4.0-11.0) Red Blood Count 4.27 x10^6/uL (3.50-5.40) Hemoglobin 12.3 g/dL (12.0-15.5) Hematocrit 36.4 % (36.0-47.0) Mean Corpuscular Volume 85 fL (79-100) Mean Corpuscular Hemoglobin 29 pg (25-35) Mean Corpuscular Hemoglobin Concent 34 g/dL (31-37) Red Cell Distribution Width 13.5 % (11.5-14.5) Platelet Count 346 x10^3/uL (140-400) Neutrophils (%) (Auto) 69 % (31-73) Lymphocytes (%) (Auto) 18 % (24-48) Monocytes (%) (Auto) 8 % (0-9) Eosinophils (%) (Auto) 4 % (0-3) Basophils (%) (Auto) 1 % (0-3) Neutrophils # (Auto) 6.7 x10^3/uL (1.8-7.7) Lymphocytes # (Auto) 1.7 x10^3/uL (1.0-4.8) Monocytes # (Auto) 0.8 x10^3/uL (0.0-1.1) Eosinophils # (Auto) 0.4 x10^3/uL (0.0-0.7) Basophils # (Auto) 0.1 x10^3/uL (0.0-0.2) Sodium Level 133 mmol/L (136-145) Potassium Level 4.1 mmol/L (3.5-5.1) Chloride Level 98 mmol/L (98-107) Carbon Dioxide Level 27 mmol/L (21-32) Anion Gap 8 (6-14) Blood Urea Nitrogen 11 mg/dL (7-20) Creatinine 0.9 mg/dL (0.6-1.0) 0.8 mg/dL (0.6-1.0) Estimated GFR (Cockcroft-Gault) 73.5 84.2 BUN/Creatinine Ratio 12 (6-20) Glucose Level 85 mg/dL (70-99) Lactic Acid Level 1.3 mmol/L (0.4-2.0) Calcium Level 8.6 mg/dL (8.5-10.1) Total Bilirubin 0.8 mg/dL (0.2-1.0) Aspartate Amino Transf (AST/SGOT) 25 U/L (15-37) Alanine Aminotransferase (ALT/SGPT) 37 U/L (14-59) Alkaline Phosphatase 70 U/L (46-116) Total Protein 7.8 g/dL (6.4-8.2) Albumin 3.7 g/dL (3.4-5.0) Albumin/Globulin Ratio 0.9 (1.0-1.7) SARS-CoV-2 Antigen (Rapid) Negative (NEGATIVE) Urine Collection Type Unknown Urine Color Yellow Urine Clarity Clear Urine pH 6.5 (<5.0-8.0) Urine Specific [place] <=1.005 (1.000-1.030) Urine Protein Negative mg/dL (NEG-TRACE) Urine Glucose (UA) Negative mg/dL (NEG) Urine Ketones (Stick) Negative mg/dL (NEG) Urine Blood Negative (NEG) Urine Nitrite Negative (NEG) Urine Bilirubin Negative (NEG) Urine Urobilinogen Dipstick 0.2 mg/dL (0.2 mg/dL) Urine Leukocyte Esterase Negative (NEG) Urine RBC 0 /HPF (0-2) Urine WBC 0 /HPF (0-4) Urine Squamous Epithelial Cells Few /LPF Urine Bacteria 0 /HPF (0-FEW) Urine Opiates Screen Pos (NEG) Urine Methadone Screen Neg (NEG) Urine Barbiturates Neg (NEG) Urine Phencyclidine Screen Neg (NEG) Urine Amphetamine/Methamphetamine Pos (NEG) Urine Benzodiazepines Screen Neg (NEG) Urine Cocaine Screen Neg (NEG) Urine Cannabinoids Screen Neg (NEG) Urine Ethyl Alcohol Neg (NEG) Laboratory Tests Test 02/05/20 15:07 02/05/20 18:13 02/05/20 23:50 02/06/20 05:15 White Blood Count 9.6 x10^3/uL (4.0-11.0) Red Blood Count 4.27 x10^6/uL (3.50-5.40) Hemoglobin 12.3 g/dL (12.0-15.5) Hematocrit 36.4 % (36.0-47.0) Mean Corpuscular Volume 85 fL (79-100) Mean Corpuscular Hemoglobin 29 pg (25-35) Mean Corpuscular Hemoglobin Concent 34 g/dL (31-37) Red Cell Distribution Width 13.5 % (11.5-14.5) Platelet Count 346 x10^3/uL (140-400) Neutrophils (%) (Auto) 69 % (31-73) Lymphocytes (%) (Auto) 18 % (24-48) Monocytes (%) (Auto) 8 % (0-9) Eosinophils (%) (Auto) 4 % (0-3) Basophils (%) (Auto) 1 % (0-3) Neutrophils # (Auto) 6.7 x10^3/uL (1.8-7.7) Lymphocytes # (Auto) 1.7 x10^3/uL (1.0-4.8) Monocytes # (Auto) 0.8 x10^3/uL (0.0-1.1) Eosinophils # (Auto) 0.4 x10^3/uL (0.0-0.7) Basophils # (Auto) 0.1 x10^3/uL (0.0-0.2) Sodium Level 133 mmol/L (136-145) Potassium Level 4.1 mmol/L (3.5-5.1) Chloride Level 98 mmol/L (98-107) Carbon Dioxide Level 27 mmol/L (21-32) Anion Gap 8 (6-14) Blood Urea Nitrogen 11 mg/dL (7-20) Creatinine 0.9 mg/dL (0.6-1.0) 0.8 mg/dL (0.6-1.0) Estimated GFR (Cockcroft-Gault) 73.5 84.2 BUN/Creatinine Ratio 12 (6-20) Glucose Level 85 mg/dL (70-99) Lactic Acid Level 1.3 mmol/L (0.4-2.0) Calcium Level 8.6 mg/dL (8.5-10.1) Total Bilirubin 0.8 mg/dL (0.2-1.0) Aspartate Amino Transf (AST/SGOT) 25 U/L (15-37) Alanine Aminotransferase (ALT/SGPT) 37 U/L (14-59) Alkaline Phosphatase 70 U/L (46-116) Total Protein 7.8 g/dL (6.4-8.2) Albumin 3.7 g/dL (3.4-5.0) Albumin/Globulin Ratio 0.9 (1.0-1.7) SARS-CoV-2 Antigen (Rapid) Negative (NEGATIVE) Urine Collection Type Unknown Urine Color Yellow Urine Clarity Clear Urine pH 6.5 (<5.0-8.0) Urine Specific [place] <=1.005 (1.000-1.030) Urine Protein Negative mg/dL (NEG-TRACE) Urine Glucose (UA) Negative mg/dL (NEG) Urine Ketones (Stick) Negative mg/dL (NEG) Urine Blood Negative (NEG) Urine Nitrite Negative (NEG) Urine Bilirubin Negative (NEG) Urine Urobilinogen Dipstick 0.2 mg/dL (0.2 mg/dL) Urine Leukocyte Esterase Negative (NEG) Urine RBC 0 /HPF (0-2) Urine WBC 0 /HPF (0-4) Urine Squamous Epithelial Cells Few /LPF Urine Bacteria 0 /HPF (0-FEW) Urine Opiates Screen Pos (NEG) Urine Methadone Screen Neg (NEG) Urine Barbiturates Neg (NEG) Urine Phencyclidine Screen Neg (NEG) Urine Amphetamine/Methamphetamine Pos (NEG) Urine Benzodiazepines Screen Neg (NEG) Urine Cocaine Screen Neg (NEG) Urine Cannabinoids Screen Neg (NEG) Urine Ethyl Alcohol Neg (NEG) Medications Current Medications Sodium Chloride 1,000 ml @ 1,000 mls/hr 1X ONCE IV Last administered on 02/05/20at 15:13; Start 02/05/20 at 14:00; Stop 02/05/20 at 14:59; Status DC Morphine Sulfate (Morphine Sulfate) 4 mg 1X ONCE IV Last administered on 02/05/20at 15:14; Start 02/05/20 at 14:00; Stop 02/05/20 at 14:02; Status DC Ondansetron HCl (Zofran) 4 mg 1X ONCE IV Last administered on 02/05/20at 15:13; Start 02/05/20 at 14:00; Stop 02/05/20 at 14:02; Status DC Lidocaine HCl (Xylocaine-Mpf 1% 2ml Vial) 4 ml 1X ONCE INJ Last administered on 02/05/20at 15:13; Start 02/05/20 at 14:00; Stop 02/05/20 at 14:02; Status DC Vancomycin HCl (Vanco Per Pharmacy) 1 each PRN DAILY PRN MC SEE COMMENTS; Start 02/05/20 at 17:15; Stop 02/05/20 at 17:31; Status DC Ondansetron HCl (Zofran) 4 mg PRN Q4HRS PRN IV NAUSEA/VOMITING; Start 02/05/20 at 17:15 Zolpidem Tartrate (Ambien) 5 mg PRN QHS PRN PO INSOMNIA Last administered on 02/05/20at 21:30; Start 02/05/20 at 17:15 Acetaminophen (Tylenol) 650 mg PRN Q4HRS PRN PO TEMP OVER 100.4F OR MILD PAIN; Start 02/05/20 at 17:15 Docusate Sodium (Colace) 100 mg PRN BID PRN PO HARD STOOLS; Start 02/05/20 at 17:15 Albuterol Sulfate (Ventolin Neb Soln) 2.5 mg PRN Q4HRS PRN NEB SHORTNESS OF BREATH; Start 02/05/20 at 17:15 Guaifenesin (Robitussin) 200 mg PRN Q4HRS PRN PO COUGH; Start 02/05/20 at 17:15 Lorazepam (Ativan) 0.5 mg PRN Q4HRS PRN PO ANXIETY / AGITATION; Start 02/05/20 at 17:15 Vancomycin HCl (Vanco Per Pharmacy) 1 each PRN DAILY PRN MC SEE COMMENTS Last administered on 02/05/20at 18:43; Start 02/05/20 at 17:15 Ketorolac Tromethamine (Toradol 15mg Vial) 15 mg PRN Q6HRS PRN IVP pain; Start 02/05/20 at 17:15; Stop 02/10/20 at 17:14 Vancomycin HCl 1.5 gm/Sodium Chloride 500 ml @ 250 mls/hr 1X ONCE IV Last administered on 02/05/20at 17:37; Start 02/05/20 at 18:00; Stop 02/05/20 at 19:59; Status DC Ondansetron HCl (Zofran) 4 mg PRN Q8HRS PRN IV NAUSEA/VOMITING; Start 02/05/20 at 17:45; Stop 02/06/20 at 17:44 Morphine Sulfate (Morphine Sulfate) 4 mg PRN Q2HR PRN IV PAIN Last administered on 02/06/20at 02:33; Start 02/05/20 at 17:45; Stop 02/06/20 at 17:44 Vancomycin HCl 1 gm/Sodium Chloride 250 ml @ 250 mls/hr Q12H IV Last administered on 02/06/20at 05:30; Start 02/06/20 at 05:30 Vancomycin HCl (Vancomycin Trough Level) 1 each 1X ONCE MC ; Start 02/07/20 at 05:00; Stop 02/07/20 at 05:01 Active Scripts Active Keflex (Cephalexin) 500 Mg Capsule 500 Mg PO QID 3 Days Zofran Odt (Ondansetron) 4 Mg Tab.rapdis 4 Mg PO Q8HRS PRN Macrobid 100 Mg Capsule (Nitrofurantoin Monohyd/M-Cryst) 100 Mg Capsule 100 Mg PO Q12HR Reported [no home meds] Vitals/I & O Vital Sign - Last 24 Hours 02/05/20 02/05/20 02/05/20 02/05/20 13:38 14:30 15:14 15:30 Temp 98.5 98.5 Pulse 84 64 70 Resp 18 16 16 16 B/P (MAP) 112/59 (76) 101/63 (76) 98/60 (73) Pulse Ox 96 97 98 99 O2 Delivery Room Air Room Air Room Air Room Air 02/05/20 02/05/20 02/05/20 02/05/20 16:30 17:30 17:49 18:30 Pulse 69 88 70 Resp 17 17 16 17 B/P (MAP) 101/67 (78) 108/67 (81) 104/67 (79) Pulse Ox 99 99 100 99 O2 Delivery Room Air Room Air Room Air Room Air 02/05/20 02/05/20 02/05/20 02/05/20 19:15 20:00 21:50 22:20 Temp 100.1 100.1 Pulse 66 Resp 20 B/P (MAP) 98/52 (67) Pulse Ox 98 98 98 O2 Delivery Room Air Room Air 02/05/20 02/06/20 02/06/20 02/06/20 23:57 00:31 01:01 02:33 Temp 99.6 99.6 Pulse 70 Resp 20 B/P (MAP) 103/44 (63) Pulse Ox 100 100 100 100 O2 Delivery Room Air Room Air Room Air Room Air 02/06/20 02/06/20 03:03 03:03 Temp 99.9 99.9 Pulse 74 Resp 18 B/P (MAP) 94/55 (68) Pulse Ox 97 97 O2 Delivery Room Air Room Air Intake and Output 02/05/20 02/05/20 02/06/20 15:00 23:00 07:00 Intake Total 0 ml 0 ml Output Total 500 ml Balance 0 ml -500 ml Justicifation of Admission Dx: Justifications for Admission: Justification of Admission Dx: N/A LARY SHAH MD Feb 06, 2020 08:24
[2020-02-06] MEDS: VANCOMYCIN PER PHARMACY MC PRN (10:07)
[2020-02-06 11:00] VITALS: BP 92/56
[2020-02-06] MEDS ORDERED: KETOROLAC 30 MG/ML VIAL. IVP PRN (14:00)
--- NOTE | 2020-02-06 14:44 | NUR ---
SW following. Discussed with RN, and Dr. Coleman, pt is an IV drug user. Per Dr. Coleman, no PAT referral needed as he provided information and pt does not want placement at this time. Dr. Coleman advised SW of need for zyvox at discharge. SW met with pt (no isolation precautions at the time). SW discussed Zyvox assistance program vs goodrx coupon. Pt wants to use the Goodrx card instead of waiting for the zyvox program. Pt reported she has the Goodrx marcos and declined any further SW needs. RN notified. Pt waiting to be seen by surgery.
[2020-02-06 15:00] VITALS: BP 93/52
[2020-02-06 19:39] VITALS: BP 97/54
[2020-02-06] MEDS: MORPHINE SULFATE 2 MG/ML VIAL. IV PRN (21:06)
--- NOTE | 2020-02-06 22:57 | CONS ---
DATE OF CONSULTATION: 02/06/2020 ORTHOPEDIC CONSULTATION REQUESTING PHYSICIAN: Alcides Joe MD REASON FOR CONSULTATION: Right hand abscess. HISTORY OF PRESENT ILLNESS: The patient is a 29-year-old female who indicates to me that she had about a week long history of right hand pain and swelling. 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 She does not particularly notice trauma, but undergoes that really all the time based on her work. She does not indicate any fever or chills, but has had hand swelling and difficulty with her grasp and was admitted for IV antibiotic therapy. She does indicate that she had not eaten all day, but was observed by nursing staff to be snacking really throughout the day despite having n.p.o. orders. She denies any pertinent past medical history. PAST SURGICAL HISTORY: Appendectomy, and tubal ligation as well as the sinus surgery. ALLERGIES: IODINE CONTRAST, WHICH GAVE HER HIVES. FAMILY HISTORY: Hypertension. SOCIAL HISTORY: She is a current smoker and has used heroin and marijuana in the past. States that she has been clean for 2 months. Currently, denies alcohol use. 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 Denies any other joint pain, problems with her dental work, burning on urination, or other constitutional symptoms of fever, chills, and no respiratory symptoms. No contact with others with coronavirus or other illnesses. PHYSICAL EXAMINATION: GENERAL: Pleasant 29-year-old female, mild distress due to the pain in her right hand. MUSCULOSKELETAL: On examination of the dorsum of her right hand, she has significant swelling and a fluctuant area centrally over the proximal portion of the metacarpals. She is slightly limited in her terminal range of motion in flexion and extension just due to her swelling, but really has no tenderness on palpation over the tendon sheaths and no evidence of any sausage digit findings. She has normal examination of the contralateral left hand, bilateral wrists, elbows, shoulders with intact motor function, distal pulses, sensation, reflexes in both upper extremities throughout. IMPRESSION: Left dorsal hand abscess. TREATMENT PLAN: I went over with her that this would really need surgical drainage to prevent progression and we would plan on cleaning out the wound, irrigating it best as possible and likely packing it open to let it continue to drain and heal from the inside out along with appropriate antibiotics. She agrees to proceed with surgical evaluation and treatment, which we will plan for early tomorrow morning consistent with n.p.o. status past midnight and I cautioned her on that about the possibility of aspiration or other complications if not keeping those precautions. FRACISCO CAREY MD DR: SANDEEP/mango JOB#: [id number] / [id number]
[2020-02-06 23:36] VITALS: BP 90/49
[2020-02-07] MEDS: MORPHINE SULFATE 2 MG/ML VIAL. IV PRN (03:03)
[2020-02-07 03:42] VITALS: BP 101/53
[2020-02-07 06:47] LABS: VANC TR 8.9 mcg/mL (10.0-20.0)
[2020-02-07 06:59] LABS: CREATININE 0.7 mg/dL (0.6-1.0); GFR 98.3
[2020-02-07] MEDS ORDERED: VANCOMYCIN 1.25 GM in IV NORMAL SALINE 250ML 250 ML IV SCH (07:00)
[2020-02-07] MEDS: VANCOMYCIN PER PHARMACY MC PRN (07:02)
[2020-02-07] MEDS ORDERED: MIDAZOLAM HCL/PF 2 MG/2 ML VIAL. ONE (07:03)
[2020-02-07] MEDS ORDERED: LIDOCAINE 2% PF 5 ML VIAL. ONE (07:03)
[2020-02-07] MEDS ORDERED: PROPOFOL 10 MG/ML (20ML) VIAL. IV ONE (07:03)
[2020-02-07] MEDS ORDERED: fentaNYL PF VIAL 100 MCG/2 ML VIAL ONE (07:03)
--- NOTE | 2020-02-07 07:04 | NUR ---
Pharmacy Vancomycin Dosing Note S: Consulted to monitor and dose vancomycin started 02/05/20. O: KRISTI BARROS is a 29 year old F with Abscess Cellulitis, Right hand abscess . Other Antibiotics: LABS: Last BUN: 11 Last Creatinine: 0.9 Creatinine Clearance: 91.5 mL/min Last WBC: 9.6 Last Procalcitonin: Tmax (past 24 hours): 99.9 Microbiology: - I/O: 0/500 3VOIDS Drug Levels: Last Trough level: 8.9 on 02/07/20 at 0525 Last dose given 02/06/20 at 1821 Vancomycin Dosing: Dosing Weight: Actual Target Trough: 10-20 A: Based on: Trough, Actual Wt and CrCl P: 1. 02/07/20 0700 Increase Vancomycin 1250 mg IV q12h 2. Follow up Trough level on 02/08/20 at 1830 3. Pharmacy will continue to monitor, follow and adjust therapy as needed. RIP SAMUEL RPH, 02/07/20 07 Signed: 02/07/20 at 0705 by RIP SAMUEL RPH PHA
[2020-02-07] MEDS ORDERED: IV RINGERS,LACTATED 1000ML 1,000 ML IV SCH (07:06)
[2020-02-07] MEDS ORDERED: PROCHLORPERAZINE 10 MG/2 ML VIAL. IV PRN (07:15)
[2020-02-07] MEDS ORDERED: DEXAMETHASONE SOD PHOS 4 MG/ML VIAL ONE (07:49)
[2020-02-07] MEDS ORDERED: ONDANSETRON PF 4 MG/2 ML VIAL. ONE (07:49)
--- NOTE | 2020-02-07 08:30 | PDOC4 ---
Operative Note Operative Note Date of surgery: 02/07/2020 Preoperative diagnosis: Right hand abscess of dorsum Postoperative diagnosis: Same with involvement to skin subcutaneous tissue and fascia Operative procedure: Irrigation debridement of right hand dorsal abscess involving skin subcutaneous tissue and fascia Surgeon: Sera Anesthesia: General Estimated blood loss: 25 cc Complications: None Operative indications: Please see my dictated orthopedic consultation for detailed operative indications and note that we covered the necessity of irrigation debridement or cleaning up her wound and the expectation of later packing to let this heal from the inside out with appropriate ongoing wound care and antibiotics as necessary. She agreed to proceed with surgical evaluation and treatment. Operative text: Patient was identified procedure verified patient placed in the supine position on the operating table. After adequate amounts of general anesthesia were administered the right upper extremity was prepped and draped in standard sterile fashion with an upper arm tourniquet. After timeout was per formed patient procedure identified and verified a longitudinal incision was made over the area of abscess and purulent drainage was obtained and cultured. Devitalized surrounding tissue including skin subcutaneous tissue and fascia was sharply debrided with rongeurs and a curette back to intact bleeding tissue. Thorough irrigation carried out normal saline solution and wound was packed with half-inch iodoform gauze covered by sterile dressings and an Luis wrap. Patient was returned to recovery room in stable condition having tolerated procedure well FRACISCO CAREY MD Feb 07, 2020 08:30
--- NOTE | 2020-02-07 09:13 | NUR ---
SW following. Discussed with RN, pt having surgery this morning. Per RN, pt stated she would be leaving AMA after surgery. Pt declined any SW needs yesterday (02/06/2020).
[2020-02-07 09:35] VITALS: BP 105/56
--- NOTE | 2020-02-07 10:04 | NUR ---
Pt returning from surgery. Requesting ivs be removed so she can leave. Signed AMA paperwork. Discussed prescriptions she stated she did not need assistance for the zyvox. Educated pt on dressing changes. Encouraged pt to follow up with Dr. Zamora in 2 weeks. Security and [employer] escorted pt out.
[2020-02-07] MEDS ORDERED: SEVOFLURANE 31 TO 60 MINUTES. IH ONE (13:52)
--- NOTE | 2020-02-07 16:04 | PDOC3 ---
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 Brief Hospital Course Allergies Allergies Coded Allergies Type Severity Reaction Last Updated Verified Iodinated Contrast Media Allergy Intermediate Hives 04/02/19 Yes Vital Signs Vital Signs Date Time Temp Pulse Resp B/P (MAP) Pulse Ox O2 Delivery O2 Flow Rate FiO2 02/07/20 09:59 Room Air 02/07/20 09:35 98.0 64 18 105/56 (72) 98 98.0 02/07/20 08:35 8 Lab Results Laboratory Tests Test 02/05/20 18:13 02/05/20 22:00 02/05/20 23:50 02/06/20 05:15 Coronavirus (PCR) Not detected (Not Detected) SARS-CoV-2 Antigen (Rapid) Negative (NEGATIVE) Nasal Screen MRSA (PCR) Negative (NEGATIVE) Urine Collection Type Unknown Urine Color Yellow Urine Clarity Clear Urine pH 6.5 (<5.0-8.0) Urine Specific [place] <=1.005 (1.000-1.030) Urine Protein Negative mg/dL (NEG-TRACE) Urine Glucose (UA) Negative mg/dL (NEG) Urine Ketones (Stick) Negative mg/dL (NEG) Urine Blood Negative (NEG) Urine Nitrite Negative (NEG) Urine Bilirubin Negative (NEG) Urine Urobilinogen Dipstick 0.2 mg/dL (0.2 mg/dL) Urine Leukocyte Esterase Negative (NEG) Urine RBC 0 /HPF (0-2) Urine WBC 0 /HPF (0-4) Urine Squamous Epithelial Cells Few /LPF Urine Bacteria 0 /HPF (0-FEW) Urine Opiates Screen Pos (NEG) Urine Methadone Screen Neg (NEG) Urine Barbiturates Neg (NEG) Urine Phencyclidine Screen Neg (NEG) Urine Amphetamine/Methamphetamine Pos (NEG) Urine Benzodiazepines Screen Neg (NEG) Urine Cocaine Screen Neg (NEG) Urine Cannabinoids Screen Neg (NEG) Urine Ethyl Alcohol Neg (NEG) Creatinine 0.8 mg/dL (0.6-1.0) Estimated GFR (Cockcroft-Gault) 84.2 Test 02/07/20 05:25 Creatinine 0.7 mg/dL (0.6-1.0) Estimated GFR (Cockcroft-Gault) 98.3 Vancomycin Level Trough 8.9 mcg/mL (10.0-20.0) Vancomycin Last Dose Date 02/06/20 Vancomycin Last Dose Time 173 Laboratory Tests Test 02/07/20 05:25 Creatinine 0.7 mg/dL (0.6-1.0) Estimated GFR (Cockcroft-Gault) 98.3 Vancomycin Level Trough 8.9 mcg/mL (10.0-20.0) Vancomycin Last Dose Date 02/06/20 Vancomycin Last Dose Time 173 Brief Hospital Course History of Present Illness History of Present Illness Ms Rice is a 29yo F w/ PMHx IVDA who p/w discomfort over her right hand, found with large abscess and cellulitis. Of note is that the patient is a former IV drug abuser who has been clean for 2 months now since an overdose that she suffered during the wintertime. Patient at the present time lives in a custodial house as well. The patient denies any fever chills no diaphoresis no cough sputum production no upper respiratory tract infections have been reported. COVID 19 negative. Apparently ED attempted I&D without significant success. XR with no bony involvement. On further questioning today she relates that she is still actively using IV heroin and has had multiple abscesses incised and debrided previously including one on the right side of her face. I have let her know that knowing that she is actively using IV heroin after incision and debridement she cannot be given any more IV opioids and she is willing to try Suboxone therapy as she is previously been on methadone and previously been on Subutex and has since relapsed. She has a male visitor who she insists mostly present in the room. I have advised her I will consult orthopedic surgery for consideration for I&D now that we know her COVID-19 test is negative. She was taken to the OR by Dr. Zamora early in the morning her report is as follows: Loc: [address] [place] [address] Room/Bed: 42 6-1 Age/Sex: 29 / F ADM Status: ADM IN ADM Date: 02/05/20 Operative Note Operative Note Date of surgery: 02/07/2020 Preoperative diagnosis: Right hand abscess of dorsum Postoperative diagnosis: Same with involvement to skin subcutaneous tissue and fascia Operative procedure: Irrigation debridement of right hand dorsal abscess involving skin subcutaneous tissue and fascia Surgeon: Sera Anesthesia: General Estimated blood loss: 25 cc Complications: None Operative indications: Please see my dictated orthopedic consultation for detailed operative indications and note that we covered the necessity of irrig ation debridement or cleaning up her wound and the expectation of later packing to let this heal from the inside out with appropriate ongoing wound care and antibiotics as necessary. She agreed to proceed with surgical evaluation and treatment. Operative text: Patient was identified procedure verified patient placed in the supine position on the operating table. After adequate amounts of general anesthesia were administered the right upper extremity was prepped and draped in standard sterile fashion with an upper arm tourniquet. After timeout was performed patient procedure identified and verified a longitudinal incision was made over the area of abscess and purulent drainage was obtained and cultured. Devitalized surrounding tissue including skin subcutaneous tissue and fascia was sharply debrided with rongeurs and a curette back to intact bleeding tissue. Thorough irrigation carried out normal saline solution and wound was packed with half-inch iodoform gauze covered by sterile dressings and an Luis wrap. Patient was returned to recovery room in stable condition having tolerated procedure well FRACISCO ZAMORA MD Feb 07, 2020 08:30 SIGNED BY: FRACISCO ZAMORA MD DATE: 02/07/20 0830 Patient post op left against medical advice before I could attend at bedside, unfortunately patient is a hisgh risk for complications including limb loss due to her lifestyle. She was hemodynamically stable when she left the hospital. I did not see the patient prior to her departure. Discharge Information Condition at Discharge: Improved Disposition/Orders: Other (Left AGAINST MEDICAL ADVICE) Scheduled Cephalexin (Keflex) 500 Mg Capsule, 500 MG PO QID for 3 Days, #12 Prescribed by: SHANTANU MCKINLEY MD on 04/03/19 0026 Nitrofurantoin Monohyd/M-Cryst (Macrobid 100 Mg Capsule) 100 Mg Capsule, 100 MG PO Q12HR, #14 Ref 0 Prescribed by: CRISTIANE CALDERON on 06/25/13 1703 Scheduled PRN Ondansetron (Zofran Odt) 4 Mg Tab.rapdis, 4 MG PO Q8HRS PRN, #10 Ref 0 Prescribed by: CRISTIANE CALDERON on 06/25/13 1703 Miscellaneous Medications [no home meds] , (Reported) Entered as Reported by: Nakia Johnson on 02/05/202354 Last Action: New Order on 02/05/202354 by Nakia Johnson Justicifation of Admission Dx: Justifications for Admission: Justification of Admission Dx: N/A DICKSON MACKAY MD Feb 07, 2020 16:04
== END 2020-02-07 09:55 | disposition left against medical advice (07) | DRG 580 ==
LOC: ER 13:04 → 6 SOUTH 17:12 → 4 NORTH 02-06 09:06
PROVIDERS: ADMIT Internal Medicine; ATTEND Internal Medicine
PROC: 0JBJ0ZZ Excision of Right Hand Subcutaneous Tissue and Fascia, Open Approach (ICD-10-PCS; principal; 2020-02-07 07:30)
DX: L03.113 Cellulitis of right upper limb (principal); L02.511 Cutaneous abscess of right hand; E22.2 Syndrome of inappropriate secretion of antidiuretic hormone; L02.512 Cutaneous abscess of left hand; J06.9 Acute upper respiratory infection, unspecified; F11.10 Opioid abuse, uncomplicated; Z20.828 Contact with and (suspected) exposure to other viral communicable diseases; F17.200 Nicotine dependence, unspecified, uncomplicated; Z53.29 Procedure and treatment not carried out because of patient's decision for other reasons; Z90.49 Acquired absence of other specified parts of digestive tract; Z98.51 Tubal ligation status; Z98.891 History of uterine scar from previous surgery; Z79.899 Other long term (current) drug therapy; Z91.041 Radiographic dye allergy status; Z82.49 Family history of ischemic heart disease and other diseases of the circulatory system
CPT/HCPCS: 10060; 36415; 73130; 80053; 80202; 80307; 81001; 82565; 83605; 85025; 87040; 87071; 87075; 87426; 87641; 96361; 96365; 96375; 99285; A7015; J1100; J1885; J2250; J2270; J2405; J2704; J3010; J3370; J3490; J7030; J7040; J7050; A4461; G0378; U0003-CS